=== PATIENT | male | born 1970 | race Caucasian/White ===

== ENCOUNTER 2016-10-17 15:41 | Inpatient (IN) | payer OTHER ==
[2016-10-17 16:25] VITALS: BMI 27.8
--- NOTE | 2016-10-17 16:53 | HP ---
Admission ROS [facility] Chief Complaint: i want to go to rehab Allergies/Adverse Reactions: Allergies Allergy/AdvReac Type Severity Reaction Status Date / Time No Known Allergies Allergy Verified 10/17/16 16:34 History of Present Illness: 46 years old male return from ER treated with abscess left upper inner arm, Exam Limitations: No Limitations - Ebola screening Have you traveled outside of the country in the last 21 days: No Have you had contact with anyone from an Ebola affected area: No Have you been sick,other than usual withdrawal symptoms: No Do you have a fever: No - Review of Systems Constitutional: Weight Stable EENT: reports: No Symptoms Reported Respiratory: reports: No Symptoms reported Cardiac: reports: No Symptoms Reported GI: reports: No Symptoms Reported : reports: No Symptoms Reported Musculoskeletal: reports: Muscle Pain (left upper inner arm) Integumentary: reports: Change in Color, Erythema (abscess left upper arm) Neuro: reports: Seizure (last episode n2016 summer, withdrawal related) Endocrine: reports: No Symptoms Reported Hematology: reports: No Symptoms Reported Psychiatric: reports: Judgement Intact, Orientated x3, Anxious Other Systems: Reviewed and Negative Patient History - Patient Medical History Hx Anemia: No Hx Asthma: No Hx Chronic Obstructive Pulmonary Disease (COPD): No Hx Cancer: No Hx Cardiac Disorders: No Hx Hypertension: No Hx Hypercholesterolemia: Yes (by history) Hx Pacemaker: No HX Cerebrovascular Accident: No Hx Seizures: Yes (drug related-last episode was in 02/2016) Hx Dementia: No Hx Diabetes: No Hx Gastrointestinal Disorders: No Hx Liver Disease: No Hx Genitourinary Disorders: No Hx Sexually Transmitted Disorders: No Hx Renal Disease (ESRD): No Hx Thyroid Disease: No Hx Human Immunodeficiency Virus (HIV): No Hx Hepatitis C: Yes (treated) Hx Depression: No Hx Suicide Attempt: Yes (pill overdose at age 30) Hx Bipolar Disorder: Yes Hx Schizophrenia: No - Patient Surgical History Past Surgical History: Yes Hx Neurologic Surgery: No Hx Cataract Extraction: No Hx Cardiac Surgery: No Hx Lung Surgery: No Hx Breast Surgery: No Hx Breast Biopsy: No Hx Abdominal Surgery: No Hx Appendectomy: No Hx Cholecystectomy: No Hx Genitourinary Surgery: No Hx Orthopedic Surgery: Yes (left forearm ) Other Surgical History: cellulitis from needle use, left arm Anesthesia Reaction: No - PPD History Previous Implant?: Yes Documented Results: Negative w/proof Implanted On Prior [facility] Admission?: Yes Date: 06/27/16 Results: 0 mm PPD to be Administered?: No - Smoking Cessation Smoking history: Current every day smoker Have you smoked in the past 12 months: Yes Aproximately how many cigarettes per day: 10 Cigars Per Day: 0 Hx Chewing Tobacco Use: No Initiated information on smoking cessation: Yes 'Breaking Loose' booklet given: 10/17/16 - Substance & Tx. History Hx Alcohol Use: No Hx Substance Use: Yes Substance Use Type: Cocaine, Tranquilizers Hx Substance Use Treatment: Yes - Substances Abused Alprazolam (Xanax) Route: Oral Frequency: Daily Amount used: 8 mg Age of first use: 20 Date of Last Use: 10/12/16 Family Disease History - Family Disease History Family Disease History: Diabetes: Brother (asthma ), Respiratory: Brother, Other : Father (no contact) Admission Physical Exam S - Vital Signs Vital Signs: Vital Signs - 24 hr 10/17/16 16:22 Temperature 97 F L Pulse Rate 76 Respiratory 20 Rate Blood Pressure 144/88 - Physical General Appearance: Yes: No Apparent Distress, Nourished, Appropriately Dressed HEENTM: Yes: Hearing grossly Normal, Normal ENT Inspection, Normocephalic, Normal Voice Respiratory: Yes: Chest Non-Tender, Lungs Clear, Normal Breath Sounds, No Respiratory Distress, No Accessory Muscle Use Neck: Yes: Supple, Trachea in good position Breast: Yes: Breasts Symetrical Cardiology: Yes: Regular Rhythm, Regular Rate, S1, S2 Abdominal: Yes: Non Tender, Soft Genitourinary: Yes: Within Normal Limits Back: Yes: Normal Inspection Musculoskeletal: Yes: full range of Motion, Gait Steady, Muscle Pain (left upper inner arm) Extremities: Yes: Normal Range of Motion, Non-Tender, Swelling (left upper inner arm abscess I&D) Neurological: Yes: Fully Oriented, Alert, Motor Strength 5/5, Normal Mood/Affect , Normal Response Integumentary: Yes: Warm, Erythema (left upper arm) Lymphatic: Yes: Within Normal Limits - Diagnostic (1) Abscess of left forearm Current Visit: Yes Status: Acute Comment: I&D on 10/13/16 at [facility], return 10/17/16, continue augmentin + clindamycin + wound care daily (2) Nicotine dependence Current Visit: Yes Status: Acute Qualifiers: Nicotine product type: cigarettes Substance use status: in withdrawal Qualified Code(s): F17.213 - Nicotine dependence, cigarettes, with withdrawal (3) Sedative, hypnotic or anxiolytic dependence with withdrawal, uncomplicated Current Visit: Yes Status: Acute (4) Hep C w/o coma, chronic Current Visit: Yes Status: Resolved Comment: treated (5) Methadone maintenance therapy patient Current Visit: Yes Status: Acute Comment: 190 mg last dose 10/17/16 at [facility], verification pending (6) Neuropathy Current Visit: Yes Status: Acute Comment: left fore arm s/p surgical repaired open fx (7) Bipolar II disorder Current Visit: Yes Status: Suspected Cleared for Admission [facility] - Detox or Rehab [facility] Level of Care: Observation Bed Detox Regimen/Protocol: Not Applicable Claeared for Rehab Admission: Yes [facility] Breath Alcohol Content Breath Alcohol Content: 0 Urine Drug Screen - Results Drug Screen Negative: No Urine Drug Screen Results: LEYDI-Cocaine, BZO-Benzodiazepines, MTD-Methadone
[2016-10-17] MEDS ORDERED: guaiFENesin/D-METHORPHAN HB 10 ML UNIT-DOSE CUPS PO PRN (16:57)
[2016-10-17] MEDS ORDERED: MAGNESIUM CITRATE 300 ML BOTTLE PO PRN (16:57)
[2016-10-17] MEDS ORDERED: MAGNESIUM HYDROX 2400MG/30ML ORAL SUSPENSION 30 ML CUP PO PRN (16:57)
[2016-10-17] MEDS ORDERED: NICOTINE 14 MG/24 HOURS TOPICAL PATCH TD PRN (16:57)
[2016-10-17] MEDS ORDERED: MENTHOL/PHENOL 1 EACH UD MM PRN (16:57)
[2016-10-17] MEDS ORDERED: diphenhydrAMINE HCL 50 MG CAPSULE PO PRN (16:57)
[2016-10-17] MEDS ORDERED: ACETAMINOPHEN 325 MG TABLET (FP) PO PRN (16:57)
[2016-10-17] MEDS ORDERED: P-EPHED 60MG/TRIPROLIDI 2.5MG TABLET PO PRN (16:57)
[2016-10-17] MEDS ORDERED: MAG HYDROX/AL HYDROX/SIMETH 30 ML UNIT-DOSE CUP PO PRN (16:57)
[2016-10-17] MEDS ORDERED: LOPERAMIDE HCL 2 MG CAPSULE PO PRN (16:57)
[2016-10-17] MEDS: AMOX TR/POT CLAV 875MG/125MG TABLETS (FP) PO SCH (18:18)
[2016-10-17] MEDS: CLINDAMYCIN HCL 150 MG CAPSULE (FP) PO SCH (18:18)
[2016-10-17] MEDS: NICOTINE POLACRILEX 2 MG GUM BC PRN ×2 (18:19→21:31)
[2016-10-17] MEDS: THIAMINE HCL 100 MG TABLET (FP) PO SCH (21:29)
[2016-10-17] MEDS: GABAPENTIN 300 MG CAPSULE (FP) PO SCH (21:31)
[2016-10-18 00:38] LABS: URINE APPEARANCE CLEAR; URINE BILIRUBIN NEGATIVE (NEGATIVE); URINE BLOOD NEGATIVE (NEGATIVE); URINE COLOR STRAW; URINE GLUCOSE (UA) NEGATIVE (NEGATIVE); URINE KETONE NEGATIVE (NEGATIVE); URINE LEUK ESTERASE NEGATIVE (NEGATIVE); URINE NITRITE NEGATIVE (NEGATIVE); URINE PROTEIN NEGATIVE (NEGATIVE); URINE UROBILINOGEN NEGATIVE E.U./dl (0.2-1.0)
[2016-10-18] MEDS: CLINDAMYCIN HCL 150 MG CAPSULE (FP) PO SCH ×5 (01:12→23:52)
[2016-10-18] MEDS ORDERED: METHADONE HCL 10 MG TABLET ONE (04:49)
[2016-10-18] MEDS ORDERED: METHADONE HCL 40 MG DISPERSABLE TABLET ONE (04:50)
[2016-10-18] MEDS ORDERED: METHADONE HCL 10 MG TABLET PO SCH (06:00)
[2016-10-18] MEDS: GABAPENTIN 300 MG CAPSULE (FP) PO SCH ×3 (06:09→21:34)
[2016-10-18] MEDS: METHADONE 160 MG, METHADONE 30 MG PO SCH (06:09)
[2016-10-18] MEDS: NICOTINE POLACRILEX 2 MG GUM BC PRN ×3 (06:12→17:56)
[2016-10-18] MEDS: AMOX TR/POT CLAV 875MG/125MG TABLETS (FP) PO SCH ×2 (07:02→17:55)
[2016-10-18 10:17] LABS: MCHC 33.6 g/dl (32.0-35.9); MEAN CELL VOLUME 83.2 fl (80-96); PLATELET COUNT 192 K/MM3 (134-434); RDW 15.1 % (11.9-15.9)
[2016-10-18] MEDS: PRENATAL VITAMINS W/ FOLIC ACID TABLET (FP) PO SCH (10:33)
[2016-10-18 10:36] LABS: ALBUMIN 3.9 g/dl (3.4-5.0); ANION GAP 7 (8-16); CALCIUM 9.4 mg/dL (8.5-10.1); CO2 34 mmol/L (21-32); GLUCOSE,RANDOM 90 mg/dL (74-106); SGOT/AST 16 U/L (15-37); SGPT/ALT 20 U/L (12-78)
[2016-10-18 10:38] LABS: ALK PHOS 57 U/L (45-117); BILIRUBIN,TOTAL 0.2 mg/dL (0.2-1.0); CREATININE 1.1 mg/dL (0.7-1.3); TOT PROT 7.1 g/dl (6.4-8.2)
--- NOTE | 2016-10-18 15:01 | EKG ---
Test Reason : Blood Pressure : / mmHG Vent. Rate : 062 BPM Atrial Rate : 062 BPM P-R Int : 134 ms QRS Dur : 086 ms QT Int : 452 ms P-R-T Axes : 032 065 037 degrees QTc Int : 458 ms NORMAL SINUS RHYTHM EARLY REPOLARIZATION WHEN COMPARED WITH ECG OF 13-OCT-2016 14:00, NO SIGNIFICANT CHANGE WAS FOUND Confirmed by LAINA MOJICA MD ([id number]) on 10/18/2016 3:01:01 PM Referred By: Julia Red Confirmed By:LAINA MOJICA MD
[2016-10-18] MEDS: THIAMINE HCL 100 MG TABLET (FP) PO SCH (21:34)
[2016-10-18] MEDS: QUEtiapine FUMARATE 25 MG TABLET (FP) PO SCH (21:34)
[2016-10-19] MEDS ORDERED: METHADONE HCL 10 MG TABLET ONE (04:17)
[2016-10-19] MEDS ORDERED: METHADONE HCL 40 MG DISPERSABLE TABLET ONE (04:18)
[2016-10-19] MEDS: METHADONE 160 MG, METHADONE 30 MG PO SCH (06:06)
[2016-10-19] MEDS: CLINDAMYCIN HCL 150 MG CAPSULE (FP) PO SCH ×4 (06:06→23:49)
[2016-10-19] MEDS: GABAPENTIN 300 MG CAPSULE (FP) PO SCH ×3 (06:06→21:46)
[2016-10-19] MEDS: NICOTINE POLACRILEX 2 MG GUM BC PRN ×4 (06:09→21:47)
[2016-10-19] MEDS: AMOX TR/POT CLAV 875MG/125MG TABLETS (FP) PO SCH ×2 (07:07→17:41)
[2016-10-19] MEDS: PRENATAL VITAMINS W/ FOLIC ACID TABLET (FP) PO SCH (10:28)
[2016-10-19] MEDS: THIAMINE HCL 100 MG TABLET (FP) PO SCH (21:46)
[2016-10-19] MEDS: QUEtiapine FUMARATE 25 MG TABLET (FP) PO SCH (21:47)
[2016-10-20] MEDS ORDERED: METHADONE HCL 10 MG TABLET ONE (03:16)
[2016-10-20] MEDS ORDERED: METHADONE HCL 40 MG DISPERSABLE TABLET ONE (03:17)
[2016-10-20] MEDS: CLINDAMYCIN HCL 150 MG CAPSULE (FP) PO SCH ×4 (06:05→23:35)
[2016-10-20] MEDS: GABAPENTIN 300 MG CAPSULE (FP) PO SCH ×3 (06:05→21:51)
[2016-10-20] MEDS: METHADONE 160 MG, METHADONE 30 MG PO SCH (06:06)
[2016-10-20] MEDS: NICOTINE POLACRILEX 2 MG GUM BC PRN ×4 (06:09→21:52)
[2016-10-20] MEDS: AMOX TR/POT CLAV 875MG/125MG TABLETS (FP) PO SCH ×2 (07:13→17:35)
[2016-10-20] MEDS: PRENATAL VITAMINS W/ FOLIC ACID TABLET (FP) PO SCH (09:38)
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
[2016-10-20] MEDS: hydrOXYzine PAMOATE 50 MG CAPSULE (FP) PO PRN (17:36)
[2016-10-20] MEDS: THIAMINE HCL 100 MG TABLET (FP) PO SCH (21:51)
[2016-10-20] MEDS: QUEtiapine FUMARATE 50 MG TABLET PO SCH (21:51)
[2016-10-21] MEDS ORDERED: METHADONE HCL 10 MG TABLET ONE (03:16)
[2016-10-21] MEDS ORDERED: METHADONE HCL 40 MG DISPERSABLE TABLET ONE (03:17)
[2016-10-21] MEDS: GABAPENTIN 300 MG CAPSULE (FP) PO SCH ×3 (06:13→21:50)
[2016-10-21] MEDS: CLINDAMYCIN HCL 150 MG CAPSULE (FP) PO SCH ×3 (06:13→17:23)
[2016-10-21] MEDS: METHADONE 160 MG, METHADONE 30 MG PO SCH (06:14)
[2016-10-21] MEDS: NICOTINE POLACRILEX 2 MG GUM BC PRN ×3 (06:16→13:43)
[2016-10-21] MEDS: AMOX TR/POT CLAV 875MG/125MG TABLETS (FP) PO SCH ×2 (07:28→17:23)
[2016-10-21] MEDS: PRENATAL VITAMINS W/ FOLIC ACID TABLET (FP) PO SCH (09:37)
[2016-10-21] MEDS: hydrOXYzine PAMOATE 50 MG CAPSULE (FP) PO PRN (09:38)
[2016-10-21] MEDS: IBUPROFEN 400 MG TABLET (FP) PO PRN (13:44)
--- NOTE | 2016-10-21 17:33 | PN ---
[facility] Progress Note Note: LEFT ELBOW SMALL AREA SIZE 0.3 CM,NO DRAINAGE,SHALLOW AT SIZE OF PREVIOUS I AND D, NO DRAINAGE,NO FLUCTUATION, D/C PACKING,BACITRACIN OINTMENT BID WITH DRESSING, CLOSE MONITORING
[2016-10-21] MEDS: BACITRACIN 0.9 GM PACKET TP SCH (21:50)
[2016-10-21] MEDS: THIAMINE HCL 100 MG TABLET (FP) PO SCH (21:50)
[2016-10-21] MEDS: QUEtiapine FUMARATE 50 MG TABLET PO SCH (21:50)
[2016-10-22] MEDS: CLINDAMYCIN HCL 150 MG CAPSULE (FP) PO SCH ×5 (00:07→23:31)
[2016-10-22] MEDS ORDERED: METHADONE HCL 10 MG TABLET ONE (04:52)
[2016-10-22] MEDS ORDERED: METHADONE HCL 40 MG DISPERSABLE TABLET ONE (04:53)
[2016-10-22] MEDS: GABAPENTIN 300 MG CAPSULE (FP) PO SCH ×3 (06:11→21:29)
[2016-10-22] MEDS: METHADONE 160 MG, METHADONE 30 MG PO SCH (06:12)
[2016-10-22] MEDS: NICOTINE POLACRILEX 2 MG GUM BC PRN ×5 (06:15→21:30)
[2016-10-22] MEDS: PRENATAL VITAMINS W/ FOLIC ACID TABLET (FP) PO SCH (09:50)
[2016-10-22] MEDS: BACITRACIN 0.9 GM PACKET TP SCH ×2 (09:50→21:29)
[2016-10-22] MEDS: AMOX TR/POT CLAV 875MG/125MG TABLETS (FP) PO SCH ×2 (09:52→17:22)
[2016-10-22] MEDS: hydrOXYzine PAMOATE 50 MG CAPSULE (FP) PO PRN ×2 (12:57→17:23)
[2016-10-22] MEDS: QUEtiapine FUMARATE 50 MG TABLET PO SCH (21:29)
[2016-10-22] MEDS: THIAMINE HCL 100 MG TABLET (FP) PO SCH (21:29)
[2016-10-23] MEDS ORDERED: METHADONE HCL 40 MG DISPERSABLE TABLET ONE (05:10)
[2016-10-23] MEDS ORDERED: METHADONE HCL 10 MG TABLET ONE (05:10)
[2016-10-23] MEDS: GABAPENTIN 300 MG CAPSULE (FP) PO SCH ×3 (06:16→21:52)
[2016-10-23] MEDS: METHADONE 160 MG, METHADONE 30 MG PO SCH (06:16)
[2016-10-23] MEDS: NICOTINE POLACRILEX 2 MG GUM BC PRN ×3 (06:18→14:05)
[2016-10-23] MEDS: PRENATAL VITAMINS W/ FOLIC ACID TABLET (FP) PO SCH (10:06)
[2016-10-23] MEDS: BACITRACIN 0.9 GM PACKET TP SCH ×2 (10:07→22:22)
[2016-10-23] MEDS: IBUPROFEN 400 MG TABLET (FP) PO PRN (10:08)
[2016-10-23] MEDS: hydrOXYzine PAMOATE 50 MG CAPSULE (FP) PO PRN ×2 (14:06→21:55)
[2016-10-23] MEDS: THIAMINE HCL 100 MG TABLET (FP) PO SCH (21:52)
[2016-10-23] MEDS: QUEtiapine FUMARATE 50 MG TABLET PO SCH (21:52)
[2016-10-24] MEDS ORDERED: METHADONE HCL 10 MG TABLET ONE (03:16)
[2016-10-24] MEDS ORDERED: METHADONE HCL 40 MG DISPERSABLE TABLET ONE (03:17)
[2016-10-24] MEDS: METHADONE 160 MG, METHADONE 30 MG PO SCH (06:07)
[2016-10-24] MEDS: GABAPENTIN 300 MG CAPSULE (FP) PO SCH ×3 (06:07→21:46)
[2016-10-24] MEDS: NICOTINE POLACRILEX 2 MG GUM BC PRN ×4 (06:09→21:48)
[2016-10-24] MEDS: PRENATAL VITAMINS W/ FOLIC ACID TABLET (FP) PO SCH (10:14)
[2016-10-24] MEDS: BACITRACIN 0.9 GM PACKET TP SCH ×2 (10:14→21:46)
[2016-10-24] MEDS: hydrOXYzine PAMOATE 50 MG CAPSULE (FP) PO PRN ×2 (10:16→14:16)
[2016-10-24] MEDS: CLINDAMYCIN HCL 150 MG CAPSULE (FP) PO SCH ×3 (14:04→14:05)
--- NOTE | 2016-10-24 15:39 | PN ---
Psychiatric Progress Note Vital Signs: Vital Signs Period Temp Pulse Resp BP Sys/Murry Pulse Ox Last 24 Hr 98.0 F 86 18-18 118/89 Date of Session: 10/24/16 Chief Complaint:: anxious " HPI: Patient is addressing opioid, sedative and cocaine dependence comorbid Bipolar II disorder and PTSD. ROS: WNL Current Medications: Active Medications Generic Name Dose Route Start Last Admin Trade Name Freq PRN Reason Stop Dose Admin Acetaminophen 650 mg 10/17/16 16:57 10/19/16 11:14 Tylenol - PO 650 mg Q4H PRN Administration PAIN Al Hydroxide/Mg Hydroxide 30 ml 10/17/16 16:57 Mylanta Oral Suspension - PO Q6H PRN DYSPEPSIA Bacitracin 0.9 gm 10/21/16 22:00 10/24/16 10:14 Bacitracin - TP 0.9 gm BID PAMELA Administration Diphenhydramine HCl 50 mg 10/17/16 16:57 10/17/16 21:30 Benadryl - PO 50 mg HSMR1 PRN Administration INSOMNIA Eucalyptus/Menthol/Phenol/Sorbitol 1 each 10/17/16 16:57 Cepastat Lozenge - MM Q4H PRN SORE THROAT Gabapentin 300 mg 10/17/16 22:00 10/24/16 14:16 Neurontin - PO 300 mg TID PAMELA Administration Guaifenesin 10 ml 10/17/16 16:57 Robitussin Dm - PO Q6H PRN COUGH Hydroxyzine Pamoate 50 mg 10/20/16 14:27 10/24/16 14:16 Vistaril - PO 50 mg Q4H PRN Administration ANXIETY Ibuprofen 400 mg 10/17/16 16:57 10/23/16 10:08 Motrin - PO 400 mg Q6H PRN Administration SEVERE PAIN Loperamide HCl 4 mg 10/17/16 16:57 Imodium - PO Q6H PRN DIARRHEA Magnesium Citrate 300 ml 10/17/16 16:57 Citroma - PO Q48H PRN CONSTIPATION Magnesium Hydroxide 30 ml 10/17/16 16:57 Milk Of Magnesia - PO DAILY PRN CONSTIPATION Methadone HCl 160 mg/ 190 mg 10/18/16 06:00 10/24/16 06:07 Methadone HCl 30 mg PO 190 mg DAILY@0600 PAMELA Administration Nicotine 14 mg 10/17/16 16:57 Nicoderm Patch - TD DAILY PRN WITHDRAWAL(CONT SUBST) Nicotine Polacrilex 2 mg 10/17/16 16:57 10/24/16 14:16 Nicorette Gum - BC 2 mg Q2H PRN Administration NICOTINE REPLACEMENT RX Multivit/Folic Acid/Iron 1 tab 10/18/16 10:00 10/24/16 10:14 Vitamins ([facility]) - PO 1 tab DAILY PAMELA Administration Pseudoephedrine/Triprolidine 1 combo 10/17/16 16:57 Actifed - PO TID PRN NASAL CONGESTION Thiamine HCl 100 mg 10/17/16 22:00 10/23/16 21:52 Vitamin B1 - PO 100 mg HS PAMELA Administration Medication(s) Change(s): increase Seroquel 150 mg po hs, start Buspar. Current Side Effect: No Lab tests ordered: No Lab tests reviewed: Yes Provider note:: Patient reports he is very anxious, states he gets more anxious when takes vistaril, unable to sleep patient reports that was on Seroquel 150 mg with a good responce, discusssed indications and properties of Buspar with the patient he agreed to start, adjust the dosage when indicated, will continue to monitor progress.Psychoeducation supports provided. Total face to face time:: 35 Mental Status Exam - Mental Status Exam Alert and Oriented to: Time, Place, Person Cognitive Function: Good Patient Appearance: Well Groomed Mood: Depressed, Sad, Anxious Affect: Appropriate, Mood Congruent Patient Behavior: Appropriate, Cooperative Speech Pattern: Clear, Appropriate Voice Loudness: Normal Thought Process: Intact, Goal Oriented Thought Disorder: Not Present Hallucinations: Denies Suicidal Ideation: Denies Homicidal Ideation: Denies Insight/Judgement: Good Sleep: Poorly, Difficulty falling asleep Appetite: Good Muscle strength/Tone: Normal Gait/Station: Normal Psychiatric Treatment Plan - Problem List (1) Methadone maintenance therapy patient Current Visit: Yes Comment: 190 mg last dose 10/17/16 at [facility], verification pending (2) Neuropathy Current Visit: Yes Comment: left fore arm s/p surgical repaired open fx (3) Nicotine dependence Current Visit: Yes Qualifiers: Nicotine product type: cigarettes Substance use status: in withdrawal Qualified Code(s): F17.213 - Nicotine dependence, cigarettes, with withdrawal (4) Bipolar II disorder Current Visit: Yes (5) Cocaine dependence Current Visit: No (6) Opioid dependence on agonist therapy Current Visit: No (7) Post traumatic stress disorder (PTSD) Current Visit: No Comment: By history. (8) Anxiolytic dependence Current Visit: Yes
[2016-10-24] MEDS: busPIRone HCL 5 MG TABLET PO SCH (21:46)
[2016-10-24] MEDS: QUEtiapine FUMARATE 50 MG TABLET PO SCH (21:46)
[2016-10-24] MEDS: THIAMINE HCL 100 MG TABLET (FP) PO SCH (21:46)
[2016-10-25] MEDS ORDERED: METHADONE HCL 10 MG TABLET ONE (03:21)
[2016-10-25] MEDS ORDERED: METHADONE HCL 40 MG DISPERSABLE TABLET ONE (03:22)
[2016-10-25] MEDS: GABAPENTIN 300 MG CAPSULE (FP) PO SCH ×3 (06:38→21:46)
[2016-10-25] MEDS: METHADONE 160 MG, METHADONE 30 MG PO SCH (06:38)
[2016-10-25] MEDS: busPIRone HCL 5 MG TABLET PO SCH ×3 (06:38→21:46)
[2016-10-25] MEDS: PRENATAL VITAMINS W/ FOLIC ACID TABLET (FP) PO SCH (10:35)
[2016-10-25] MEDS: BACITRACIN 0.9 GM PACKET TP SCH ×2 (10:35→21:46)
[2016-10-25] MEDS: NICOTINE POLACRILEX 2 MG GUM BC PRN ×2 (10:35→21:47)
[2016-10-25] MEDS: QUEtiapine FUMARATE 50 MG TABLET PO SCH (21:46)
[2016-10-25] MEDS: THIAMINE HCL 100 MG TABLET (FP) PO SCH (21:46)
[2016-10-26] MEDS ORDERED: METHADONE HCL 10 MG TABLET ONE (03:19)
[2016-10-26] MEDS ORDERED: METHADONE HCL 40 MG DISPERSABLE TABLET ONE (03:19)
[2016-10-26] MEDS: busPIRone HCL 5 MG TABLET PO SCH ×3 (06:36→21:36)
[2016-10-26] MEDS: METHADONE 160 MG, METHADONE 30 MG PO SCH (06:36)
[2016-10-26] MEDS: GABAPENTIN 300 MG CAPSULE (FP) PO SCH ×3 (06:36→21:36)
[2016-10-26] MEDS: BACITRACIN 0.9 GM PACKET TP SCH ×2 (10:23→21:36)
[2016-10-26] MEDS: PRENATAL VITAMINS W/ FOLIC ACID TABLET (FP) PO SCH (10:23)
[2016-10-26] MEDS: QUEtiapine FUMARATE 50 MG TABLET PO SCH (21:36)
[2016-10-26] MEDS: THIAMINE HCL 100 MG TABLET (FP) PO SCH (21:37)
[2016-10-26] MEDS: NICOTINE POLACRILEX 2 MG GUM BC PRN (21:37)
[2016-10-27] MEDS ORDERED: METHADONE HCL 10 MG TABLET ONE (03:13)
[2016-10-27] MEDS ORDERED: METHADONE HCL 40 MG DISPERSABLE TABLET ONE (03:13)
[2016-10-27] MEDS: busPIRone HCL 5 MG TABLET PO SCH ×2 (06:06→14:21)
[2016-10-27] MEDS: GABAPENTIN 300 MG CAPSULE (FP) PO SCH ×3 (06:06→22:18)
[2016-10-27] MEDS: METHADONE 160 MG, METHADONE 30 MG PO SCH (06:06)
[2016-10-27] MEDS: NICOTINE POLACRILEX 2 MG GUM BC PRN ×4 (06:08→22:20)
[2016-10-27] MEDS: hydrOXYzine PAMOATE 50 MG CAPSULE (FP) PO PRN (10:01)
[2016-10-27] MEDS: BACITRACIN 0.9 GM PACKET TP SCH ×2 (10:01→22:18)
[2016-10-27] MEDS: PRENATAL VITAMINS W/ FOLIC ACID TABLET (FP) PO SCH (10:01)
--- NOTE | 2016-10-27 14:16 | PN ---
[facility] Progress Note Note: patient reports he feels a little better but still anxious, will increase Buspar 10 mg tid, continue to monitor progress.
[2016-10-27] MEDS ORDERED: busPIRone HCL 5 MG TABLET PO SCH (14:22)
[2016-10-27] MEDS: busPIRone HCL 10 MG TABLET (FP) PO SCH ×2 (14:26→22:18)
[2016-10-27] MEDS: THIAMINE HCL 100 MG TABLET (FP) PO SCH (22:18)
[2016-10-27] MEDS: QUEtiapine FUMARATE 50 MG TABLET PO SCH (22:18)
[2016-10-28] MEDS ORDERED: METHADONE HCL 40 MG DISPERSABLE TABLET ONE (03:45)
[2016-10-28] MEDS ORDERED: METHADONE HCL 10 MG TABLET ONE (03:45)
[2016-10-28] MEDS: busPIRone HCL 10 MG TABLET (FP) PO SCH ×3 (06:09→21:37)
[2016-10-28] MEDS: GABAPENTIN 300 MG CAPSULE (FP) PO SCH ×3 (06:09→21:37)
[2016-10-28] MEDS: METHADONE 160 MG, METHADONE 30 MG PO SCH (06:09)
[2016-10-28] MEDS: PRENATAL VITAMINS W/ FOLIC ACID TABLET (FP) PO SCH (10:07)
[2016-10-28] MEDS: NICOTINE POLACRILEX 2 MG GUM BC PRN ×2 (10:07→21:39)
[2016-10-28] MEDS: BACITRACIN 0.9 GM PACKET TP SCH ×2 (10:07→21:38)
[2016-10-28] MEDS: hydrOXYzine PAMOATE 50 MG CAPSULE (FP) PO PRN (10:07)
[2016-10-28] MEDS: THIAMINE HCL 100 MG TABLET (FP) PO SCH (21:37)
[2016-10-28] MEDS: QUEtiapine FUMARATE 50 MG TABLET PO SCH (21:37)
[2016-10-29] MEDS ORDERED: METHADONE HCL 10 MG TABLET ONE (03:22)
[2016-10-29] MEDS ORDERED: METHADONE HCL 40 MG DISPERSABLE TABLET ONE (03:23)
[2016-10-29] MEDS: busPIRone HCL 10 MG TABLET (FP) PO SCH (06:13)
[2016-10-29] MEDS: METHADONE 160 MG, METHADONE 30 MG PO SCH (06:13)
[2016-10-29] MEDS: GABAPENTIN 300 MG CAPSULE (FP) PO SCH (06:13)
[2016-10-29 07:10] VITALS: BP 117/76; PULSE 91; TEMP 98.4
[2016-10-29] MEDS: hydrOXYzine PAMOATE 50 MG CAPSULE (FP) PO PRN (09:55)
[2016-10-29] MEDS: PRENATAL VITAMINS W/ FOLIC ACID TABLET (FP) PO SCH (09:55)
[2016-10-29] MEDS: BACITRACIN 0.9 GM PACKET TP SCH (09:56)
--- NOTE | 2016-10-29 20:14 | PN ---
[facility] Progress Note Note: patient was discharged today in stable condition with referral to the [facility] opd, scripts for 30 days provided.
== END 2016-10-29 10:40 | disposition home or self-care (01) | DRG 895 ==
LOC: YASAS 15:41 → Y5N 15:54
PROVIDERS: ADMIT Psychiatry & Neurology Psychiatry; ATTEND Psychiatry & Neurology Psychiatry
PROC: HZ42ZZZ Group Counseling for Substance Abuse Treatment, Cognitive-Behavioral (ICD-10-PCS; principal; 2016-10-17)
DX: F13.20 Sedative, hypnotic or anxiolytic dependence, uncomplicated (principal); F11.20 Opioid dependence, uncomplicated; F14.20 Cocaine dependence, uncomplicated; F31.81 Bipolar II disorder; L02.414 Cutaneous abscess of left upper limb; F17.210 Nicotine dependence, cigarettes, uncomplicated; F43.10 Post-traumatic stress disorder, unspecified; G62.9 Polyneuropathy, unspecified; Z86.69 Personal history of other diseases of the nervous system and sense organs; Z91.5 Personal history of self-harm
CPT/HCPCS: 36415; 80053; 81003; 85027; 86593; 93005; 93010

== ENCOUNTER 2017-01-26 11:11 | Inpatient (IN) | payer OTHER ==
[2017-01-26 12:42] VITALS: BMI 26.4
--- NOTE | 2017-01-26 16:26 | HP ---
CIWA Score - CIWA Score Nausea/Vomitin-Mild Nausea/No Vomiting Muscle Tremors: 4-Moderate,w/Arms Extend Anxiety: 4-Mod. Anxious/Guarded Agitation: 4-Moderately Restless Paroxysmal Sweats: 1-Minimal Palms Moist Orientation: 0-Oriented Tacttile Disturbances: 0-None Auditory Disturbances: 0-None Visual Disturbances: 0-None Headache: 1-Very Mild CIWA-Ar Total Score: 15 Admission ROS [facility] - HPI Chief Complaint: WITHDRAWAL SX Allergies/Adverse Reactions: Allergies Allergy/AdvReac Type Severity Reaction Status Date / Time No Known Allergies Allergy Verified 01/26/17 16:32 History of Present Illness: 46 YEARS OLD MALE WITH LONG HISTORY OF KLONOPIN NICOTINE DEPENDENCE HAS HEPATITIS C TREATED, METHADONE 190 MG PO DAILY, BIPOLAR II DISORDER IS ADMITTED TO DETOX Exam Limitations: No Limitations - Ebola screening Have you traveled outside of the country in the last 21 days: No Have you had contact with anyone from an Ebola affected area: No Have you been sick,other than usual withdrawal symptoms: No Do you have a fever: No - Review of Systems Constitutional: Chills, Changes in sleep, Weight Stable EENT: reports: No Symptoms Reported Respiratory: reports: No Symptoms reported Cardiac: reports: No Symptoms Reported GI: reports: Nausea, Poor Fluid Intake, Abdominal cramping : reports: No Symptoms Reported Musculoskeletal: reports: No Symptoms Reported Integumentary: reports: Change in Color, Rash (ARMS) Neuro: reports: Seizure (2016 BENZO WITHDRAWAL INDUCED), Tremors Endocrine: reports: No Symptoms Reported Hematology: reports: No Symptoms Reported Psychiatric: reports: Judgement Intact, Orientated x3 Other Systems: Reviewed and Negative Patient History - Patient Medical History Hx Anemia: No Hx Asthma: No Hx Chronic Obstructive Pulmonary Disease (COPD): No Hx Cancer: No Hx Cardiac Disorders: No Hx Hypertension: No Hx Hypercholesterolemia: Yes (by history) Hx Pacemaker: No HX Cerebrovascular Accident: No Hx Seizures: Yes (last one 2016 drug overdose) Hx Dementia: No Hx Diabetes: No Hx Gastrointestinal Disorders: No Hx Liver Disease: No Hx Genitourinary Disorders: No Hx Sexually Transmitted Disorders: No Hx Renal Disease (ESRD): No Hx Thyroid Disease: No Hx Human Immunodeficiency Virus (HIV): No Hx Hepatitis C: Yes (treated) Hx Depression: No Hx Suicide Attempt: Yes (15 YEARS AGO PILLS OVERDOSE) Hx Bipolar Disorder: Yes Hx Schizophrenia: No - Patient Surgical History Past Surgical History: Yes Hx Neurologic Surgery: No Hx Cataract Extraction: No Hx Cardiac Surgery: No Hx Lung Surgery: No Hx Breast Surgery: No Hx Breast Biopsy: No Hx Abdominal Surgery: No Hx Appendectomy: No Hx Cholecystectomy: No Hx Genitourinary Surgery: No Hx Orthopedic Surgery: Yes (left forearm 2011) Other Surgical History: cellulitis from needle use, left arm Anesthesia Reaction: No - PPD History Previous Implant?: Yes Documented Results: Negative w/proof Implanted On Prior [facility] Admission?: Yes Date: 06/27/16 Results: 0 mm PPD to be Administered?: No - Smoking Cessation Smoking history: Current every day smoker Have you smoked in the past 12 months: Yes Aproximately how many cigarettes per day: 20 Cigars Per Day: 0 Hx Chewing Tobacco Use: No Initiated information on smoking cessation: Yes 'Breaking Loose' booklet given: 01/26/17 - Substance & Tx. History Hx Alcohol Use: No Hx Substance Use: Yes Substance Use Type: Cocaine, Marijuana, Opiates, Tranquilizers Hx Substance Use Treatment: Yes (10/17-10/29/16 [facility]) Family Disease History - Family Disease History Family Disease History: Diabetes: Brother (asthma ), Respiratory: Brother, Other : Father (no contact) Admission Physical Exam [facility] - Vital Signs Vital Signs: Vital Signs - 24 hr 01/26/17 12:20 Temperature 96 F L Pulse Rate 83 Respiratory 20 Rate Blood Pressure 100/69 - Physical General Appearance: Yes: Nourished, Appropriately Dressed, Mild Distress, Tremorous, Irritable, Sweating, Anxious HEENTM: Yes: Hearing grossly Normal, Normal ENT Inspection, Normocephalic, Normal Voice Respiratory: Yes: Chest Non-Tender, Lungs Clear, Normal Breath Sounds, No Respiratory Distress, No Accessory Muscle Use Neck: Yes: Supple, Trachea in good position Breast: Yes: Breasts Symetrical Cardiology: Yes: Regular Rhythm, Regular Rate, S1, S2 Abdominal: Yes: Non Tender, Soft Genitourinary: Yes: Within Normal Limits Back: Yes: Normal Inspection Musculoskeletal: Yes: full range of Motion, Gait Steady Extremities: Yes: Normal Range of Motion, Non-Tender, Tremors, Erythema (HANDS + ARMS RASHES) Neurological: Yes: Fully Oriented, Alert, Motor Strength 5/5, Normal Mood/Affect , Normal Response Integumentary: Yes: Warm Lymphatic: Yes: Within Normal Limits - Diagnostic (1) Methadone maintenance therapy patient Current Visit: Yes Status: Chronic Comment: 190 mg verification pending (2) Nicotine dependence Current Visit: Yes Status: Acute Qualifiers: Nicotine product type: cigarettes Substance use status: in withdrawal Qualified Code(s): F17.213 - Nicotine dependence, cigarettes, with withdrawal (3) Bipolar II disorder Current Visit: Yes Status: Suspected (4) Sedative, hypnotic or anxiolytic dependence with withdrawal, uncomplicated Current Visit: Yes Status: Acute (5) Cocaine dependence, uncomplicated Current Visit: Yes Status: Chronic (6) Cannabis dependence, uncomplicated Current Visit: Yes Status: Chronic (7) Hypercholesteremia Current Visit: Yes Status: Chronic Cleared for Admission [facility] - Detox or Rehab [facility] Level of Care: Medically Managed Detox Regimen/Protocol: Valium S Breath Alcohol Content Breath Alcohol Content: 0 Urine Drug Screen - Control Is Test Valid: Yes - Results Drug Screen Negative: No Urine Drug Screen Results: THC-Marijuana, LEYDI-Cocaine, OPI-Opiates, BZO- Benzodiazepines, MTD-Methadone
[2017-01-26] MEDS ORDERED: P-EPHED 60MG/TRIPROLIDI 2.5MG TABLET PO PRN (16:31)
[2017-01-26] MEDS ORDERED: MAG HYDROX/AL HYDROX/SIMETH 30 ML UNIT-DOSE CUP PO PRN (16:31)
[2017-01-26] MEDS ORDERED: MENTHOL/PHENOL 1 EACH UD MM PRN (16:31)
[2017-01-26] MEDS ORDERED: hydrOXYzine PAMOATE 50 MG CAPSULE (FP) PO PRN (16:31)
[2017-01-26] MEDS ORDERED: guaiFENesin/D-METHORPHAN HB 10 ML UNIT-DOSE CUPS PO PRN (16:31)
[2017-01-26] MEDS ORDERED: MAGNESIUM CITRATE 300 ML BOTTLE PO PRN (16:31)
[2017-01-26] MEDS ORDERED: diphenhydrAMINE HCL 50 MG CAPSULE PO PRN (16:31)
[2017-01-26] MEDS ORDERED: IBUPROFEN 400 MG TABLET (FP) PO PRN (16:31)
[2017-01-26] MEDS ORDERED: LOPERAMIDE HCL 2 MG CAPSULE PO PRN (16:31)
[2017-01-26] MEDS ORDERED: ACETAMINOPHEN 325 MG TABLET (FP) PO PRN (16:31)
[2017-01-26] MEDS ORDERED: MAGNESIUM HYDROX 2400MG/30ML ORAL SUSPENSION 30 ML CUP PO PRN (16:31)
[2017-01-26] MEDS ORDERED: diazePAM 5 MG TABLET PO ONE (18:45)
[2017-01-26] MEDS: THIAMINE HCL 100 MG TABLET (FP) PO SCH (22:26)
[2017-01-26] MEDS: HYDROCORTISONE 2.5% TOPICAL CREAM 30 GM TUBE TP SCH (22:27)
[2017-01-26] MEDS: diazePAM 5 MG TABLET PO SCH (22:27)
[2017-01-26] MEDS: carBAMazepine 200 MG TABLET PO SCH (22:27)
[2017-01-26] MEDS: ATORVASTATIN CA 20 MG TABLET (FP) PO SCH (22:27)
[2017-01-26 23:21] LABS: URINE APPEARANCE SLCLOUDY; URINE BILIRUBIN NEGATIVE (NEGATIVE); URINE BLOOD NEGATIVE (NEGATIVE); URINE COLOR AMBER; URINE GLUCOSE (UA) NEGATIVE (NEGATIVE); URINE KETONE TRACE (NEGATIVE); URINE LEUK ESTERASE TRACE (NEGATIVE); URINE NITRITE NEGATIVE (NEGATIVE); URINE PROTEIN 1+ (NEGATIVE); URINE UROBILINOGEN NEGATIVE E.U./dl (0.2-1.0)
[2017-01-26 23:27] LABS: URINE HYALINE CAST 16 /lpf; URINE MUCUS FEW; URINE RBC 1 /hpf (0-3); URINE WBC 3 /hpf (3-5)
[2017-01-27] MEDS: diazePAM 5 MG TABLET PO SCH ×3 (05:29→22:24)
[2017-01-27] MEDS: NICOTINE POLACRILEX 4 MG GUM BC PRN ×5 (05:31→22:25)
[2017-01-27] MEDS ORDERED: METHADONE HCL 10 MG TABLET PO ONE (08:58)
[2017-01-27] MEDS ORDERED: METHADONE 160 MG, METHADONE 30 MG PO ONE (09:15)
[2017-01-27] MEDS ORDERED: METHADONE HCL 10 MG TABLET ONE (09:34)
[2017-01-27] MEDS ORDERED: METHADONE HCL 40 MG DISPERSABLE TABLET ONE (09:34)
[2017-01-27] MEDS: carBAMazepine 200 MG TABLET PO SCH ×2 (09:36→22:24)
[2017-01-27] MEDS: PRENATAL VITAMINS W/ FOLIC ACID TABLET (FP) PO SCH (09:36)
[2017-01-27] MEDS: DOCUSATE SODIUM 100 MG CAPSULE (FP) PO SCH (09:36)
[2017-01-27 09:44] LABS: MCHC 33.6 g/dl (32.0-35.9); MEAN CELL VOLUME 83.2 fl (80-96); MEAN PLT VOLUME 10.3 fl (7.5-11.1); PLATELET COUNT 188 K/MM3 (134-434); RDW 15.2 % (11.9-15.9); WHITE BLOOD COUNT 10.9 K/mm3 (4.0-10.0)
[2017-01-27 10:28] LABS: ALBUMIN 4.4 g/dl (3.4-5.0); ALK PHOS 65 U/L (45-117); ANION GAP 13 (8-16); BILIRUBIN,TOTAL 0.7 mg/dL (0.2-1.0); CALCIUM 9.3 mg/dL (8.5-10.1); CO2 27 mmol/L (21-32); CREATININE 1.4 mg/dL (0.7-1.3); GLUCOSE,RANDOM 80 mg/dL (74-106); SGOT/AST 17 U/L (15-37); SGPT/ALT 22 U/L (12-78); TOT PROT 8.2 g/dl (6.4-8.2)
[2017-01-27] MEDS: NICOTINE 21 MG/24 HOURS TOPICAL PATCH TD SCH (10:28)
[2017-01-27] MEDS: diazePAM 5 MG TABLET PO PRN ×2 (10:30→17:03)
--- NOTE | 2017-01-27 10:44 | CONSULT ---
[facility] Psychiatric Consult - Data Date of interview: 01/27/17 Admission source: [facility] Identifying data: This is 46 years old male with psychiatric hospitalization history, history of Bipolar mDisorder, intoxicated with: Opioids, mCocaine, Alcohol Nicotine and Cannabis and Xanax Substance Abuse History: Urine Drug Screen Results: THC-Marijuana, LEYDI-Cocaine, OPI-Opiates, BZO-Benzodiazepines, MTD-Methadone. - Smoking Cessation. Smoking history: Current every day smoker. Have you smoked in the past 12 months: Yes. Aproximately how many cigarettes per day: 20. Cigars Per Day: 0. Hx Chewing Tobacco Use: No. Initiated information on smoking cessation: Yes. 'Breaking Loose' booklet given: 01/26/17. - Substance & Tx. History. Hx Alcohol Use: No. Hx Substance Use: Yes. Substance Use Type: Cocaine, Marijuana, Opiates, Tranquilizers. Hx Substance Use Treatment: Yes (10/17-10/29/16 [facility]) Medical History: MMTP 190 md /day, Hyperdholesterolemia, Abscess, Neuropathy, HepC+ Psychiatric History: Patient reports history of Bipolar Disorder with most recent psychiatric admission on more then 10 years ago, reports currently taking prior to admission: Seroquel 150mg po qhs. Gabapentin 300mg po tid. Buspar 10mg po tid. Tegretol 200mg po bid Physical/Sexual Abuse/Trauma History: Denies Additional Comment: Seroquel 150mg po qhs. Gabapentin 300mg po tid. Buspar 10mg po tid. Tegretol 200mg po bid. Urine Drug Screen Results: THC-Marijuana, ELYDI-Cocaine, OPI-Opiates, BZO-Benzodiazepines, MTD-Methadone Mental Status Exam - Mental Status Exam Alert and Oriented to: Person Cognitive Function: Fair Patient Appearance: Unkempt Mood: Sad Affect: Flat Patient Behavior: Sedated Speech Pattern: Delayed Voice Loudness: Mildly Soft/Quiet Thought Process: Goal Oriented Thought Disorder: Being Controlled Hallucinations: Denies Suicidal Ideation: Denies Homicidal Ideation: Denies Insight/Judgement: Fair Sleep: Difficulty falling asleep Appetite: Weight gain Muscle strength/Tone: Mild Hypotonicity Gait/Station: Shuffling Additional Comments: Seroquel 150mg po qhs. Gabapentin 300mg po tid. Buspar 10mg po tid. Tegretol 200mg po bid Psychiatric Findings - Problem List ([place] 1, 2,3) (1) Nicotine dependence Current Visit: Yes Status: Acute Qualifiers: Nicotine product type: cigarettes Substance use status: in withdrawal Qualified Code(s): F17.213 - Nicotine dependence, cigarettes, with withdrawal (2) Sedative, hypnotic or anxiolytic dependence with withdrawal, uncomplicated Current Visit: Yes Status: Acute (3) Cannabis dependence, uncomplicated Current Visit: Yes Status: Chronic (4) Cocaine dependence, uncomplicated Current Visit: Yes Status: Chronic (5) Methadone maintenance therapy patient Current Visit: Yes Status: Chronic Comment: 190 mg verification pending (6) Bipolar II disorder Current Visit: Yes Status: Suspected (7) Benzodiazepine dependence Current Visit: No Status: Acute (8) Cocaine dependence Current Visit: No Status: Acute (9) Drug-induced mood disorder Current Visit: No Status: Acute (10) Marijuana dependence Current Visit: No Status: Acute (11) Substance induced mood disorder Current Visit: No Status: Acute (12) Cocaine abuse Current Visit: No Status: Chronic (13) Post traumatic stress disorder (PTSD) Current Visit: No Status: Chronic Comment: By history. (14) Xanax use disorder, moderate Current Visit: No Status: Chronic - Initial Treatment Plan Initial Treatment Plan: Seroquel 150mg po qhs. Gabapentin 300mg po tid. Buspar 10mg po tid. Tegretol 200mg po bid. Patient refusing to restart Buspar
[2017-01-27] MEDS: HYDROCORTISONE 2.5% TOPICAL CREAM 30 GM TUBE TP SCH ×2 (11:26→22:24)
--- NOTE | 2017-01-27 11:52 | PN ---
[facility] CIWA - CIWA Score Nausea/Vomitin-No Nausea/No Vomiting Muscle Tremors: 4-Moderate,w/Arms Extend Anxiety: 4-Mod. Anxious/Guarded Agitation: 4-Moderately Restless Paroxysmal Sweats: 1-Minimal Palms Moist Orientation: 0-Oriented Tacttile Disturbances: 3-Moderate Itch/Numb/Burn Auditory Disturbances: 0-None Visual Disturbances: 0-None Headache: 0-None Present CIWA-Ar Total Score: 16 S Progress Note (SOAP) Subjective: ANXIETY,TREMORS,MUSCLE ACHES. Objective: 01/27/17 11:51 Vital Signs Temperature 95.9 F L 01/27/17 09:42 Pulse Rate 73 01/27/17 09:42 Respiratory Rate 18 01/27/17 09:42 Blood Pressure 119/82 01/27/17 09:42 O2 Sat by Pulse Oximetry (%) Laboratory Last Values WBC 10.9 K/mm3 (4.0-10.0) H D 01/27/17 06:00 RBC 4.79 M/mm3 (4.00-5.60) 01/27/17 06:00 Hgb 13.4 GM/dL (11.7-16.9) 01/27/17 06:00 Hct 39.9 % (35.4-49) 01/27/17 06:00 MCV 83.2 fl (80-96) 01/27/17 06:00 MCHC 33.6 g/dl (32.0-35.9) 01/27/17 06:00 RDW 15.2 % (11.9-15.9) 01/27/17 06:00 Plt Count 188 K/MM3 (134-434) 01/27/17 06:00 MPV 10.3 fl (7.5-11.1) 01/27/17 06:00 Sodium 136 mmol/L (136-145) 01/27/17 06:00 Potassium 4.0 mmol/L (3.5-5.1) D 01/27/17 06:00 Chloride 96 mmol/L (98-107) L 01/27/17 06:00 Carbon Dioxide 27 mmol/L (21-32) D 01/27/17 06:00 Anion Gap 13 (8-16) 01/27/17 06:00 BUN 13 mg/dL (7-18) D 01/27/17 06:00 Creatinine 1.4 mg/dL (0.7-1.3) H D 01/27/17 06:00 Creat Clearance w eGFR 55.05 (>60) 01/27/17 06:00 Random Glucose 80 mg/dL (74-106) 01/27/17 06:00 Calcium 9.3 mg/dL (8.5-10.1) 01/27/17 06:00 Total Bilirubin 0.7 mg/dL (0.2-1.0) D 01/27/17 06:00 AST 17 U/L (15-37) 01/27/17 06:00 ALT 22 U/L (12-78) 01/27/17 06:00 Alkaline Phosphatase 65 U/L (45-117) 01/27/17 06:00 Total Protein 8.2 g/dl (6.4-8.2) 01/27/17 06:00 Albumin 4.4 g/dl (3.4-5.0) 01/27/17 06:00 Urine Color Jill 01/26/17 23:05 Urine Appearance Slcloudy 01/26/17 23:05 Urine pH 5.0 (5.0-8.0) 01/26/17 23:05 Ur Specific [place] >= 1.030 (1.005-1.025) H 01/26/17 23:05 Urine Protein 1+ (NEGATIVE) H 01/26/17 23:05 Urine Glucose (UA) Negative (NEGATIVE) 01/26/17 23:05 Urine Ketones Trace (NEGATIVE) H 01/26/17 23:05 Urine Blood Negative (NEGATIVE) 01/26/17 23:05 Urine Nitrite Negative (NEGATIVE) 01/26/17 23:05 Urine Bilirubin Negative (NEGATIVE) 01/26/17 23:05 Urine Urobilinogen Negative E.U./dl (0.2-1.0) 01/26/17 23:05 Ur Leukocyte Esterase Trace (NEGATIVE) H 01/26/17 23:05 Urine RBC 1 /hpf (0-3) 01/26/17 23:05 Urine WBC 3 /hpf (3-5) 01/26/17 23:05 Ur Epithelial Cells Rare /hpf (FEW) 01/26/17 23:05 Hyaline Casts 16 /lpf 01/26/17 23:05 Urine Mucus Few 01/26/17 23:05 Assessment: 01/27/17 11:51 WITHDRAWAL SX Plan: CONTINUE DETOX INCREASE PO FLUIDS
[2017-01-27] MEDS: GABAPENTIN 300 MG CAPSULE (FP) PO SCH ×2 (14:02→22:24)
--- NOTE | 2017-01-27 14:47 | EKG ---
Test Reason : Blood Pressure : / mmHG Vent. Rate : 052 BPM Atrial Rate : 052 BPM P-R Int : 144 ms QRS Dur : 092 ms QT Int : 466 ms P-R-T Axes : 059 073 059 degrees QTc Int : 433 ms SINUS BRADYCARDIA OTHERWISE NORMAL ECG WHEN COMPARED WITH ECG OF 17-OCT-2016 22:25, NO SIGNIFICANT CHANGE WAS FOUND Confirmed by NADIA CURTIS MD ([id number]) on 01/27/2017 2:47:17 PM Referred By: Confirmed By:NADIA CURTIS MD
[2017-01-27] MEDS: QUEtiapine FUMARATE 50 MG TABLET PO SCH (22:24)
[2017-01-27] MEDS: THIAMINE HCL 100 MG TABLET (FP) PO SCH (22:24)
[2017-01-27] MEDS: ATORVASTATIN CA 20 MG TABLET (FP) PO SCH (22:24)
[2017-01-27] MEDS ORDERED: INSULIN (NOVOLOG) ASPART 100 UNITS/ML 10ML VIAL ONE (22:25)
[2017-01-27 23:10] LABS: URINE APPEARANCE CLEAR; URINE BILIRUBIN NEGATIVE (NEGATIVE); URINE BLOOD NEGATIVE (NEGATIVE); URINE COLOR LTYELLOW; URINE GLUCOSE (UA) NEGATIVE (NEGATIVE); URINE KETONE NEGATIVE (NEGATIVE); URINE LEUK ESTERASE NEGATIVE (NEGATIVE); URINE NITRITE NEGATIVE (NEGATIVE); URINE PROTEIN NEGATIVE (NEGATIVE); URINE UROBILINOGEN NEGATIVE E.U./dl (0.2-1.0)
[2017-01-28] MEDS ORDERED: METHADONE HCL 10 MG TABLET ONE (04:05)
[2017-01-28] MEDS ORDERED: METHADONE HCL 40 MG DISPERSABLE TABLET ONE (04:05)
[2017-01-28] MEDS: METHADONE 160 MG, METHADONE 30 MG PO SCH (05:22)
[2017-01-28] MEDS: GABAPENTIN 300 MG CAPSULE (FP) PO SCH ×3 (05:22→22:22)
[2017-01-28] MEDS: NICOTINE POLACRILEX 4 MG GUM BC PRN ×4 (05:23→22:23)
[2017-01-28] MEDS: diazePAM 5 MG TABLET PO PRN ×2 (05:23→16:38)
[2017-01-28] MEDS ORDERED: METHADONE HCL 10 MG TABLET PO SCH (06:00)
[2017-01-28] MEDS: diazePAM 5 MG TABLET PO SCH ×2 (10:29→22:22)
[2017-01-28] MEDS: DOCUSATE SODIUM 100 MG CAPSULE (FP) PO SCH (10:29)
[2017-01-28] MEDS: HYDROCORTISONE 2.5% TOPICAL CREAM 30 GM TUBE TP SCH ×2 (10:29→22:23)
[2017-01-28] MEDS: PRENATAL VITAMINS W/ FOLIC ACID TABLET (FP) PO SCH (10:29)
[2017-01-28] MEDS: NICOTINE 21 MG/24 HOURS TOPICAL PATCH TD SCH (10:30)
--- NOTE | 2017-01-28 10:30 | PN ---
[facility] CIWA - CIWA Score Nausea/Vomitin-No Nausea/No Vomiting Muscle Tremors: 4-Moderate,w/Arms Extend Anxiety: 4-Mod. Anxious/Guarded Agitation: 4-Moderately Restless Paroxysmal Sweats: 1-Minimal Palms Moist Orientation: 0-Oriented Tacttile Disturbances: 3-Moderate Itch/Numb/Burn Auditory Disturbances: 0-None Visual Disturbances: 0-None Headache: 0-None Present CIWA-Ar Total Score: 16 S Progress Note (SOAP) Subjective: ANXIETY,RESTLESSNESS, SWEATS,INTERMITTENT SLEEP Objective: 01/28/17 10:29 Vital Signs Temperature 96.5 F L 01/28/17 09:36 Pulse Rate 78 01/28/17 09:36 Respiratory Rate 18 01/28/17 09:36 Blood Pressure 107/70 01/28/17 09:36 O2 Sat by Pulse Oximetry (%) Laboratory Last Values WBC 10.9 K/mm3 (4.0-10.0) H D 01/27/17 06:00 RBC 4.79 M/mm3 (4.00-5.60) 01/27/17 06:00 Hgb 13.4 GM/dL (11.7-16.9) 01/27/17 06:00 Hct 39.9 % (35.4-49) 01/27/17 06:00 MCV 83.2 fl (80-96) 01/27/17 06:00 MCHC 33.6 g/dl (32.0-35.9) 01/27/17 06:00 RDW 15.2 % (11.9-15.9) 01/27/17 06:00 Plt Count 188 K/MM3 (134-434) 01/27/17 06:00 MPV 10.3 fl (7.5-11.1) 01/27/17 06:00 Sodium 136 mmol/L (136-145) 01/27/17 06:00 Potassium 4.0 mmol/L (3.5-5.1) D 01/27/17 06:00 Chloride 96 mmol/L (98-107) L 01/27/17 06:00 Carbon Dioxide 27 mmol/L (21-32) D 01/27/17 06:00 Anion Gap 13 (8-16) 01/27/17 06:00 BUN 13 mg/dL (7-18) D 01/27/17 06:00 Creatinine 1.4 mg/dL (0.7-1.3) H D 01/27/17 06:00 Creat Clearance w eGFR 55.05 (>60) 01/27/17 06:00 Random Glucose 80 mg/dL (74-106) 01/27/17 06:00 Calcium 9.3 mg/dL (8.5-10.1) 01/27/17 06:00 Total Bilirubin 0.7 mg/dL (0.2-1.0) D 01/27/17 06:00 AST 17 U/L (15-37) 01/27/17 06:00 ALT 22 U/L (12-78) 01/27/17 06:00 Alkaline Phosphatase 65 U/L (45-117) 01/27/17 06:00 Total Protein 8.2 g/dl (6.4-8.2) 01/27/17 06:00 Albumin 4.4 g/dl (3.4-5.0) 01/27/17 06:00 Urine Color L[place] 01/27/17 15:00 Urine Appearance Clear 01/27/17 15:00 Urine pH 5.0 (5.0-8.0) 01/27/17 15:00 Ur Specific [place] >= 1.030 (1.005-1.025) H 01/26/17 23:05 Urine Protein Negative (NEGATIVE) 01/27/17 15:00 Urine Glucose (UA) Negative (NEGATIVE) 01/27/17 15:00 Urine Ketones Negative (NEGATIVE) 01/27/17 15:00 Urine Blood Negative (NEGATIVE) 01/27/17 15:00 Urine Nitrite Negative (NEGATIVE) 01/27/17 15:00 Urine Bilirubin Negative (NEGATIVE) 01/27/17 15:00 Urine Urobilinogen Negative E.U./dl (0.2-1.0) 01/27/17 15:00 Ur Leukocyte Esterase Negative (NEGATIVE) 01/27/17 15:00 Urine RBC 1 /hpf (0-3) 01/26/17 23:05 Urine WBC 3 /hpf (3-5) 01/26/17 23:05 Ur Epithelial Cells Rare /hpf (FEW) 01/26/17 23:05 Hyaline Casts 16 /lpf 01/26/17 23:05 Urine Mucus Few 06/19/17 23:05 Carbamazepine 2.6 ug/ml (4.0-12.0) L* 01/26/17 06:00 RPR Titer Nonreactive (NONREACTIVE) 01/27/17 06:00 Assessment: 01/28/17 10:29 WITHDRAWAL SX Plan: CONTINUE DETOX
[2017-01-28] MEDS: carBAMazepine 200 MG TABLET PO SCH ×2 (11:32→22:23)
[2017-01-28] MEDS: THIAMINE HCL 100 MG TABLET (FP) PO SCH (22:22)
[2017-01-28] MEDS: QUEtiapine FUMARATE 50 MG TABLET PO SCH (22:22)
[2017-01-28] MEDS: ATORVASTATIN CA 20 MG TABLET (FP) PO SCH (22:23)
[2017-01-29] MEDS ORDERED: METHADONE HCL 10 MG TABLET ONE (04:12)
[2017-01-29] MEDS ORDERED: METHADONE HCL 40 MG DISPERSABLE TABLET ONE (04:13)
[2017-01-29] MEDS: diazePAM 5 MG TABLET PO PRN (05:20)
[2017-01-29] MEDS: METHADONE 160 MG, METHADONE 30 MG PO SCH (05:20)
[2017-01-29] MEDS: GABAPENTIN 300 MG CAPSULE (FP) PO SCH ×3 (05:20→22:28)
[2017-01-29] MEDS: NICOTINE POLACRILEX 4 MG GUM BC PRN ×4 (05:21→22:28)
--- NOTE | 2017-01-29 09:59 | PN ---
S Progress Note (SOAP) Subjective: DECREASED IRRITABILITY AND RESTLESSNESS. DETOX PROCEEDING WELL. Objective: 01/29/17 09:59 Vital Signs Temperature 97.0 F L 01/29/17 06:54 Pulse Rate 86 01/29/17 06:54 Respiratory Rate 18 01/29/17 06:54 Blood Pressure 118/88 01/29/17 06:54 O2 Sat by Pulse Oximetry (%) Assessment: 01/29/17 09:59 DECREASED W/S Plan: CONTINUE DETOX
[2017-01-29] MEDS: HYDROCORTISONE 2.5% TOPICAL CREAM 30 GM TUBE TP SCH ×2 (10:31→22:28)
[2017-01-29] MEDS: diazePAM 5 MG TABLET PO SCH ×2 (10:31→22:28)
[2017-01-29] MEDS: carBAMazepine 200 MG TABLET PO SCH ×2 (10:31→22:28)
[2017-01-29] MEDS: NICOTINE 21 MG/24 HOURS TOPICAL PATCH TD SCH (10:31)
[2017-01-29] MEDS: DOCUSATE SODIUM 100 MG CAPSULE (FP) PO SCH (10:31)
[2017-01-29] MEDS: PRENATAL VITAMINS W/ FOLIC ACID TABLET (FP) PO SCH (10:31)
[2017-01-29] MEDS: THIAMINE HCL 100 MG TABLET (FP) PO SCH (22:28)
[2017-01-29] MEDS: ATORVASTATIN CA 20 MG TABLET (FP) PO SCH (22:28)
[2017-01-29] MEDS: QUEtiapine FUMARATE 50 MG TABLET PO SCH (22:28)
[2017-01-30] MEDS ORDERED: METHADONE HCL 10 MG TABLET ONE (04:03)
[2017-01-30] MEDS ORDERED: METHADONE HCL 40 MG DISPERSABLE TABLET ONE (04:04)
[2017-01-30] MEDS: GABAPENTIN 300 MG CAPSULE (FP) PO SCH (05:19)
[2017-01-30] MEDS: METHADONE 160 MG, METHADONE 30 MG PO SCH (05:19)
[2017-01-30 06:43] VITALS: BP 112/83; PULSE 95; TEMP 96.9
--- NOTE | 2017-01-30 08:50 | DS ---
[facility] Detox Discharge Summary Admission Date: 01/26/17 Discharge Date: 01/30/17 - History Present History: Alcohol Dependence, Cannabis Dependence, Cocaine Dependence, Sedative Dependence, MMTP Additional Comments: DETOX COMPLETED.ALERT O X 3. NAD. Pertinent Past History: HYPERCHOLESTEROLEMIA HX SEIZURE HX HEP C DEPRESSION - Physical Exam Results Vital Signs: Vital Signs Temperature 96.9 F L 01/30/17 06:42 Pulse Rate 95 H 01/30/17 06:42 Respiratory Rate 18 01/30/17 06:42 Blood Pressure 112/83 01/30/17 06:42 O2 Sat by Pulse Oximetry (%) Pertinent Admission Physical Exam Findings: WITHDRAWAL SX - Treatment Hospital Course: Detox Protocol Followed, Detoxed Safely, Responded well, Discharged Condition Good, Rehab Referral Accepted Patient has Accepted a Rehab Referral to: [facility] - Medication Discharge Medications: Ambulatory Orders Buspirone HCl [Buspar -] 10 mg PO TID #90 tablet 10/28/16 Quetiapine Fumarate [Seroquel -] 150 mg PO HS #30 tablet 10/28/16 Gabapentin [Neurontin -] 300 mg PO TID #90 tab 10/29/16 Carbamazepine [Tegretol -] 200 mg PO BID 01/26/17 Docusate Sodium [Colace -] 100 mg PO DAILY 01/26/17 Gabapentin [Neurontin -] 300 mg PO TID #90 cap 01/27/17 Quetiapine Fumarate [Seroquel] 150 mg PO HS #45 tablet 01/27/17 - Diagnosis (1) Neuropathy Status: Chronic (2) Nicotine dependence Status: Acute Qualifiers: Nicotine product type: cigarettes Substance use status: in withdrawal Qualified Code(s): F17.213 - Nicotine dependence, cigarettes, with withdrawal (3) Opioid dependence on agonist therapy Status: Acute (4) Sedative, hypnotic or anxiolytic dependence with withdrawal, uncomplicated Status: Acute (5) Cannabis dependence, uncomplicated Status: Acute (6) Cocaine dependence, uncomplicated Status: Acute (7) Hypercholesteremia Status: Chronic (8) Methadone maintenance therapy patient Status: Chronic (9) Bipolar II disorder Status: Suspected - AMA Did Patient Leave Against Medical Advice: No
[2017-01-30] MEDS ORDERED: diazePAM 5 MG TABLET PO SCH (10:00)
== END 2017-01-30 09:00 | disposition home or self-care (01) | DRG 897 ==
LOC: YASAS 11:11 → Y3N 18:17
PROVIDERS: ADMIT Internal Medicine; ATTEND Internal Medicine
PROC: HZ2ZZZZ Detoxification Services for Substance Abuse Treatment (ICD-10-PCS; principal; 2017-01-30)
DX: F11.20 Opioid dependence, uncomplicated (principal); F13.230 Sedative, hypnotic or anxiolytic dependence with withdrawal, uncomplicated; F14.20 Cocaine dependence, uncomplicated; F17.213 Nicotine dependence, cigarettes, with withdrawal; F31.81 Bipolar II disorder; F12.20 Cannabis dependence, uncomplicated; F19.24 Other psychoactive substance dependence with psychoactive substance-induced mood disorder; F43.10 Post-traumatic stress disorder, unspecified; G62.9 Polyneuropathy, unspecified; E78.00 Pure hypercholesterolemia, unspecified
CPT/HCPCS: 36415; 80053; 80156; 81003; 81015; 85027; 86593; 93005; 93010

== ENCOUNTER 2017-07-08 10:01 | Inpatient (IN) | payer OTHER ==
[2017-07-08 11:21] VITALS: BMI 27.6
--- NOTE | 2017-07-08 13:23 | HP ---
CIWA Score - CIWA Score Nausea/Vomitin-No Nausea/No Vomiting Muscle Tremors: 3 Anxiety: 4-Mod. Anxious/Guarded Agitation: 3 Paroxysmal Sweats: 1-Minimal Palms Moist Orientation: 0-Oriented Tacttile Disturbances: 3-Moderate Itch/Numb/Burn Auditory Disturbances: 0-None Visual Disturbances: 0-None Headache: 1-Very Mild CIWA-Ar Total Score: 15 Admission ROS S - HPI Chief Complaint: WITHDRAWAL SX Allergies/Adverse Reactions: Allergies Allergy/AdvReac Type Severity Reaction Status Date / Time No Known Allergies Allergy Verified 01/26/17 16:32 History of Present Illness: 46 Y/O MALE WITH A HX OF XANAX AND KLONOPIN DEPENDENCE SEEKING DETOX [place]. Exam Limitations: No Limitations - Ebola screening Have you traveled outside of the country in the last 21 days: No Have you had contact with anyone from an Ebola affected area: No Have you been sick,other than usual withdrawal symptoms: No Do you have a fever: No - Review of Systems Constitutional: Chills, Loss of Appetite, Night Sweats, Changes in sleep EENT: reports: Tearing, Nose Congestion, Dental Problems (NO TEETH;RECENT TEETH EXTRACTION 07/07/17.) Respiratory: reports: No Symptoms reported Cardiac: reports: Lightheadedness GI: reports: Constipated, Diarrhea, Nausea, Poor Appetite, Poor Fluid Intake, Vomiting, Abdominal cramping : reports: No Symptoms Reported Musculoskeletal: reports: Back Pain, Muscle Pain Integumentary: reports: Rash (RIGHT MONK RED RASH) Neuro: reports: Headache, Seizure (DUE TO WITHDRAWAL SX), Tremors, Dizziness Endocrine: reports: No Symptoms Reported Hematology: reports: Anemia Psychiatric: reports: Orientated x3, Anxious, Depressed Other Systems: Reviewed and Negative Patient History - Patient Medical History Hx Anemia: No Hx Asthma: No Hx Chronic Obstructive Pulmonary Disease (COPD): No Hx Cancer: No Hx Cardiac Disorders: No Hx Hypertension: No Hx Hypercholesterolemia: Yes (by history) Hx Pacemaker: No HX Cerebrovascular Accident: No Hx Seizures: Yes (xanax related last in 2015) Hx Dementia: No Hx Diabetes: No Hx Gastrointestinal Disorders: No Hx Liver Disease: No Hx Genitourinary Disorders: No Hx Sexually Transmitted Disorders: No (DENIES) Hx Renal Disease (ESRD): No Hx Thyroid Disease: No Hx Human Immunodeficiency Virus (HIV): No Hx Hepatitis C: Yes (treated) Hx Depression: Yes (ON MED) Hx Suicide Attempt: Yes (Tried to overdose in 2013;DENIES CURRENT S/I) Hx Bipolar Disorder: Yes Hx Schizophrenia: No - Patient Surgical History Past Surgical History: Yes Hx Neurologic Surgery: No Hx Cataract Extraction: No Hx Cardiac Surgery: No Hx Lung Surgery: No Hx Breast Surgery: No Hx Breast Biopsy: No Hx Abdominal Surgery: No Hx Appendectomy: No Hx Cholecystectomy: No Hx Genitourinary Surgery: No Hx Orthopedic Surgery: Yes (left forearm 2011) Other Surgical History: cellulitis from needle use, left arm R foot abscess sx Anesthesia Reaction: No - PPD History Previous Implant?: Yes Documented Results: Negative w/o proof Implanted On Prior [facility] Admission?: Yes Date: 06/27/16 Results: 0 mm PPD to be Administered?: Yes - Reproductive History Patient is a Female of Child Bearing Age (11 -55 yrs old): No (MALE) - Smoking Cessation Smoking history: Current every day smoker Have you smoked in the past 12 months: Yes Aproximately how many cigarettes per day: 10 Cigars Per Day: 0 Hx Chewing Tobacco Use: No Initiated information on smoking cessation: Yes 'Breaking Loose' booklet given: 07/08/17 - Substance & Tx. History Hx Alcohol Use: No (DENIES) Hx Substance Use: Yes (XANAX/KLONOPIN) Substance Use Type: Tranquilizers Hx Substance Use Treatment: Yes (LAST TX AT [facility]) - Substances Abused Cocaine Route: Smoking Frequency: 1-2 times per week Amount used: $20 Age of first use: 29 Date of Last Use: 07/07/17 xanax or klonopin Route: Oral Frequency: Daily Amount used: 6mg or 10mg Age of first use: 20 Date of Last Use: 07/08/17 Family Disease History - Family Disease History Family Disease History: Diabetes: Brother (asthma ), Respiratory: Brother, Other : Father (no contact) Admission Physical Exam S - Vital Signs Vital Signs: Vital Signs - 24 hr 07/08/17 11:11 Temperature 97 F L Pulse Rate 60 Respiratory 20 Rate Blood Pressure 89/57 - Physical General Appearance: Yes: Irritable, Anxious HEENTM: Yes: EOMI, Normocephalic, [place] Respiratory: Yes: Chest Non-Tender, Lungs Clear, Normal Breath Sounds, No Respiratory Distress Neck: Yes: No masses,lesions,Nodules, Supple, Trachea in good position Breast: Yes: Breast Exam Deferred Cardiology: Yes: Regular Rhythm, Regular Rate, S1, S2 Abdominal: Yes: Normal Bowel Sounds, Non Tender, Flat Genitourinary: Yes: Other (N/C) Back: Yes: Within Normal Limits Musculoskeletal: Yes: full range of Motion, Gait Steady Extremities: Yes: Normal Range of Motion, Non-Tender Neurological: Yes: repairer controller tester II-XII NML intact, Fully Oriented, Alert Integumentary: Yes: Dry, Warm, Other ( SX SCAR LEFT FOREARM) Lymphatic: Yes: Within Normal Limits - Diagnostic (1) Cocaine dependence, uncomplicated Current Visit: Yes Status: Acute (2) Nicotine dependence Current Visit: Yes Status: Acute Qualifiers: Nicotine product type: cigarettes Substance use status: in withdrawal Qualified Code(s): F17.213 - Nicotine dependence, cigarettes, with withdrawal (3) Sedative, hypnotic or anxiolytic dependence with withdrawal, uncomplicated Current Visit: Yes Status: Acute (4) Hypercholesteremia Current Visit: Yes Status: Chronic (5) Methadone maintenance therapy patient Current Visit: Yes Status: Chronic Comment: 190 mg verification pending (6) Neuropathy Current Visit: Yes Status: Chronic Comment: left fore arm s/p surgical repaired open fx Cleared for Admission [facility] - Detox or Rehab [facility] Level of Care: Medically Managed Detox Regimen/Protocol: Valium [facility] Breath Alcohol Content Breath Alcohol Content: 0 Urine Drug Screen - Results Drug Screen Negative: No Urine Drug Screen Results: LEYDI-Cocaine, BZO-Benzodiazepines, MTD-Methadone, TCA- Tricyclic Antidepress
[2017-07-08] MEDS ORDERED: MENTHOL/PHENOL 1 EACH UD MM PRN (13:28)
[2017-07-08] MEDS ORDERED: P-EPHED 60MG/TRIPROLIDI 2.5MG TABLET PO PRN (13:28)
[2017-07-08] MEDS ORDERED: MAGNESIUM HYDROX 2400MG/30ML ORAL SUSPENSION 30 ML CUP PO PRN (13:28)
[2017-07-08] MEDS ORDERED: ACETAMINOPHEN 325 MG TABLET (FP) PO PRN (13:28)
[2017-07-08] MEDS ORDERED: MAGNESIUM CITRATE 300 ML BOTTLE PO PRN (13:28)
[2017-07-08] MEDS ORDERED: IBUPROFEN 400 MG TABLET (FP) PO PRN (13:28)
[2017-07-08] MEDS ORDERED: hydrOXYzine PAMOATE 50 MG CAPSULE (FP) PO PRN (13:28)
[2017-07-08] MEDS ORDERED: guaiFENesin/D-METHORPHAN HB 10 ML UNIT-DOSE CUPS PO PRN (13:28)
[2017-07-08] MEDS ORDERED: MAG HYDROX/AL HYDROX/SIMETH 30 ML UNIT-DOSE CUP PO PRN (13:28)
[2017-07-08] MEDS ORDERED: LOPERAMIDE HCL 2 MG CAPSULE PO PRN (13:28)
[2017-07-08] MEDS ORDERED: diazePAM 5 MG TABLET PO ONE (13:45)
[2017-07-08] MEDS: diazePAM 5 MG TABLET PO SCH ×2 (14:41→22:11)
[2017-07-08] MEDS: NICOTINE 14 MG/24 HOURS TOPICAL PATCH TD SCH (14:45)
[2017-07-08] MEDS: NICOTINE POLACRILEX 2 MG GUM BC PRN ×2 (14:46→19:34)
[2017-07-08 14:54] LABS: HIV 1 & 2 AB NEGATIVE; HIV 1 AGp24 NEGATIVE
--- NOTE | 2017-07-08 16:48 | CONSULT ---
[facility] Psychiatric Consult - Data Date of interview: 07/08/17 Admission source: [facility] Identifying data: Readmission to [facility] for this 46 y/o male seeking detox treatment on for cocaine and benzodiazepine dependence.Patient is ,a father of one,domiciled,unemployed and supported on SSI benefits. Substance Abuse History: Confirmed by patient in this interview.See this [facility] report for details : Smoking history: Current every day smoker. Have you smoked in the past 12 months: Yes. Aproximately how many cigarettes per day: 10. Cigars Per Day: 0. Hx Chewing Tobacco Use: No. Initiated information on smoking cessation: Yes. 'Breaking Loose' booklet given: 07/08/17. - Substance & Tx. History. Hx Alcohol Use: No (DENIES). Hx Substance Use: Yes (XANAX/ KLONOPIN). Substance Use Type: Tranquilizers. Hx Substance Use Treatment: Yes (LAST TX AT [facility]). - Substances Abused. Cocaine. Route: Smoking. Frequency: 1-2 times per week. Amount used: $20. Age of first use: 29. Date of Last Use: 07/07/17. xanax or klonopin. Route: Oral. Frequency: Daily. Amount used: 6mg or 10mg. Age of first use: 20. Date of Last Use: 07/08/17 Medical History: Significant for a history of withdrawal seizures,hepatitis C and hypercholesterolemia. Psychiatric History: Patient admits to a remote history of psychiatric hospitalizations (10 years ago) in [place] and [facility].Diagnosed with Bipolar Disorder and PTSD.Patient is currently on methadone maintenance (190 mg/ day) at [facility] in [facility] and he gets OPD care at [facility]).Prescribed seroquel 150 mg/hs + gabapentin 300mg po tid.Non-adherent to medications for " a little over a month." Mr Kaye admits to a history of a suicide attempt via overdose with pills + heroin (15 years ago). Physical/Sexual Abuse/Trauma History: No reported history of abuse. Additional Comment: Urine Drug Screen Results: LEYDI-Cocaine, BZO-Benzodiazepines , MTD-Methadone, TCA-Tricyclic Antidepressant.Noted. Mental Status Exam - Mental Status Exam Alert and Oriented to: Time, Place, Person Cognitive Function: Good Patient Appearance: Well Groomed Mood: Nervous, Withdrawn, Hopeful Affect: Mood Congruent Patient Behavior: Fatigued, Appropriate, Cooperative Speech Pattern: Clear Voice Loudness: Normal Thought Process: Goal Oriented Thought Disorder: Not Present Hallucinations: Denies Suicidal Ideation: Denies Homicidal Ideation: Denies Insight/Judgement: Poor Sleep: Poorly, Difficulty falling asleep Appetite: Good Muscle strength/Tone: Normal Gait/Station: Normal Psychiatric Findings - Problem List ([place] 1, 2,3) (1) Sedative, hypnotic or anxiolytic dependence with withdrawal, uncomplicated Current Visit: Yes Status: Acute (2) Cocaine dependence, uncomplicated Current Visit: Yes Status: Acute (3) Opioid dependence on agonist therapy Current Visit: Yes Status: Acute (4) Nicotine dependence Current Visit: Yes Status: Acute Qualifiers: Nicotine product type: cigarettes Substance use status: in withdrawal Qualified Code(s): F17.213 - Nicotine dependence, cigarettes, with withdrawal (5) Substance induced mood disorder Current Visit: Yes Status: Acute (6) Post traumatic stress disorder (PTSD) Current Visit: Yes Status: Chronic Comment: By history. (7) Insomnia Current Visit: Yes Status: Acute - Initial Treatment Plan Initial Treatment Plan: Psychoeducation.Detoxification in progress.Sleep hygiene recommended.Seroquel 100 mg po hs.Side effects/benefits discussed with patient.He agrees with this careplan.Observation.
[2017-07-08] MEDS: AMOXICILLIN 500 MG CAPSULE (FP) PO SCH ×2 (17:03→22:11)
[2017-07-08] MEDS: diazePAM 5 MG TABLET PO PRN (19:34)
[2017-07-08] MEDS: THIAMINE HCL 100 MG TABLET (FP) PO SCH (22:11)
[2017-07-08] MEDS: CHLORHEXIDINE GLUCONATE MM SCH (22:11)
[2017-07-08] MEDS: ATORVASTATIN CA 10 MG TABLET (FP) PO SCH (22:11)
[2017-07-08] MEDS: DOCUSATE SODIUM 100 MG CAPSULE (FP) PO SCH (22:11)
[2017-07-08] MEDS: QUEtiapine FUMARATE 100 MG TABLET (FP) PO SCH (22:11)
[2017-07-08 22:35] LABS: ALBUMIN 4.5 g/dl (3.4-5.0); ANION GAP 5 (8-16); BILIRUBIN,TOTAL 0.4 mg/dL (0.2-1.0); CALCIUM 9.1 mg/dL (8.5-10.1); CO2 28 mmol/L (21-32); CREATININE 1.2 mg/dL (0.7-1.3); GLUCOSE,RANDOM 65 mg/dL (74-106); SGOT/AST 20 U/L (15-37); SGPT/ALT 22 U/L (12-78); TOT PROT 7.8 g/dl (6.4-8.2)
[2017-07-08 22:36] LABS: ALK PHOS 52 U/L (45-117); MCH 28.9 pg (25.7-33.7); MCHC 34.3 g/dl (32.0-35.9); MEAN CELL VOLUME 84.4 fl (80-96); MEAN PLT VOLUME 11.1 fl (7.5-11.1); PLATELET COUNT 161 K/MM3 (134-434); RDW 15.2 % (11.9-15.9); WHITE BLOOD COUNT 9.6 K/mm3 (4.0-10.0)
[2017-07-08 22:59] LABS: URINE APPEARANCE CLEAR; URINE BILIRUBIN NEGATIVE (NEGATIVE); URINE BLOOD NEGATIVE (NEGATIVE); URINE COLOR YELLOW; URINE GLUCOSE (UA) NEGATIVE (NEGATIVE); URINE KETONE NEGATIVE (NEGATIVE); URINE NITRITE NEGATIVE (NEGATIVE); URINE PROTEIN NEGATIVE (NEGATIVE); URINE UROBILINOGEN NEGATIVE mg/dL (0.2-1.0)
[2017-07-09] MEDS ORDERED: METHADONE HCL 40 MG DISPERSABLE TABLET ONE (04:02)
[2017-07-09] MEDS ORDERED: METHADONE HCL 10 MG TABLET ONE (04:02)
[2017-07-09] MEDS: METHADONE 160 MG, METHADONE 30 MG PO SCH (05:22)
[2017-07-09] MEDS: DOCUSATE SODIUM 100 MG CAPSULE (FP) PO SCH ×3 (05:23→22:12)
[2017-07-09] MEDS: AMOXICILLIN 500 MG CAPSULE (FP) PO SCH ×3 (05:23→22:12)
[2017-07-09] MEDS: diazePAM 5 MG TABLET PO SCH ×3 (05:23→22:12)
[2017-07-09] MEDS: NICOTINE POLACRILEX 2 MG GUM BC PRN ×4 (05:25→22:17)
[2017-07-09] MEDS ORDERED: METHADONE HCL 10 MG TABLET PO SCH (06:00)
[2017-07-09] MEDS: PRENATAL VITAMINS W/ FOLIC ACID TABLET (FP) PO SCH (10:08)
[2017-07-09] MEDS: NICOTINE 14 MG/24 HOURS TOPICAL PATCH TD SCH (10:10)
[2017-07-09] MEDS: CHLORHEXIDINE GLUCONATE MM SCH ×2 (10:10→22:13)
[2017-07-09] MEDS: IBUPROFEN 600 MG TABLET (FP) PO PRN ×2 (10:15→18:10)
[2017-07-09] MEDS: diazePAM 5 MG TABLET PO PRN ×2 (10:17→18:11)
[2017-07-09 10:18] LABS: ALBUMIN 3.7 g/dl (3.4-5.0); ALK PHOS 50 U/L (45-117); ANION GAP 3 (8-16); BILIRUBIN,TOTAL 0.4 mg/dL (0.2-1.0); CALCIUM 8.8 mg/dL (8.5-10.1); CO2 30 mmol/L (21-32); CREATININE 1.1 mg/dL (0.7-1.3); GLUCOSE,RANDOM 86 mg/dL (74-106); SGOT/AST 15 U/L (15-37); SGPT/ALT 21 U/L (12-78)
--- NOTE | 2017-07-09 11:44 | PN ---
[facility] CIWA - CIWA Score Nausea/Vomitin-No Nausea/No Vomiting Muscle Tremors: 4-Moderate,w/Arms Extend Anxiety: 3 Agitation: 2 Paroxysmal Sweats: 3 Orientation: 0-Oriented Tacttile Disturbances: 2-Mild Itch/Numbness/Burn Auditory Disturbances: 2-Mild Harshness/Frighten Visual Disturbances: 2-Mild Sensitivity Headache: 0-None Present CIWA-Ar Total Score: 18 S Progress Note (SOAP) Subjective: Body Aches, Tremors, Sweating, Fatigue. Objective: PT. A & O X 3, OBSERVED AMBULATING ON UNIT. NO ACUTE DISTRESS. 07/09/17 11:42 Vital Signs Temperature 96.0 F L 07/09/17 09:14 Pulse Rate 82 07/09/17 09:14 Respiratory Rate 18 07/09/17 09:14 Blood Pressure 104/72 07/09/17 09:14 O2 Sat by Pulse Oximetry (%) Laboratory Tests 07/08/17 07/08/17 07/08/17 11:20 13:30 13:30 WBC 9.6 RBC 4.54 Hgb 13.1 Hct 38.3 MCV 84.4 MCH 28.9 MCHC 34.3 RDW 15.2 Plt Count 161 MPV 11.1 Sodium 139 Potassium 5.2 H D Chloride 106 D Carbon Dioxide 28 Anion Gap 5 L BUN 20 H D Creatinine 1.2 Creat Clearance w eGFR > 60 Random Glucose 65 L Calcium 9.1 Total Bilirubin 0.4 D AST 20 ALT 22 Alkaline Phosphatase 52 Total Protein 7.8 Albumin 4.5 Urine Color Urine Appearance Urine pH Ur Specific [place] Urine Protein Urine Glucose (UA) Urine Ketones Urine Blood Urine Nitrite Urine Bilirubin Urine Urobilinogen RPR Titer HIV 1&2 Antibody Screen Negative HIV P24 Antigen Negative 07/08/17 07/08/17 07/09/17 13:30 15:50 07:00 WBC RBC Hgb Hct MCV MCH MCHC RDW Plt Count MPV Sodium 139 Potassium 4.8 Chloride 106 Carbon Dioxide 30 Anion Gap 3 L BUN 21 H Creatinine 1.1 Creat Clearance w eGFR > 60 Random Glucose 86 D Calcium 8.8 Total Bilirubin 0.4 AST 15 D ALT 21 Alkaline Phosphatase 50 Total Protein 7.0 Albumin 3.7 Urine Color Yellow Urine Appearance Clear Urine pH 5.0 Ur Specific [place] 1.016 Urine Protein Negative Urine Glucose (UA) Negative Urine Ketones Negative Urine Blood Negative Urine Nitrite Negative Urine Bilirubin Negative Urine Urobilinogen Negative RPR Titer Nonreactive HIV 1&2 Antibody Screen HIV P24 Antigen LABS NOTED. RESULTS OF REPEAT CMP NOTED. 07/09/17 11:45 Assessment: 07/09/17 11:42 WITHDRAWAL SYMPTOMS. Plan: CONTINUE DETOX. INCREASE DAILY PO FLUID INTAKE.
--- NOTE | 2017-07-09 13:09 | EKG ---
Test Reason : Blood Pressure : / mmHG Vent. Rate : 048 BPM Atrial Rate : 048 BPM P-R Int : 140 ms QRS Dur : 090 ms QT Int : 456 ms P-R-T Axes : 047 068 045 degrees QTc Int : 407 ms SINUS BRADYCARDIA OTHERWISE NORMAL ECG WHEN COMPARED WITH ECG OF 26-JAN-2017 18:18, NO SIGNIFICANT CHANGE WAS FOUND Confirmed by TOMMY BROWNE MD ([id number]) on 07/09/2017 1:08:59 PM Referred By: SANTA SHORT Confirmed By:TOMMY BROWNE MD
[2017-07-09 13:26] LABS: URINE LEUK ESTERASE Negative (NEGATIVE)
[2017-07-09] MEDS: THIAMINE HCL 100 MG TABLET (FP) PO SCH (22:12)
[2017-07-09] MEDS: QUEtiapine FUMARATE 100 MG TABLET (FP) PO SCH (22:13)
[2017-07-09] MEDS: ATORVASTATIN CA 10 MG TABLET (FP) PO SCH (22:13)
[2017-07-10] MEDS ORDERED: METHADONE HCL 10 MG TABLET ONE (03:46)
[2017-07-10] MEDS ORDERED: METHADONE HCL 40 MG DISPERSABLE TABLET ONE (03:47)
[2017-07-10] MEDS: diazePAM 5 MG TABLET PO PRN ×3 (05:36→18:01)
[2017-07-10] MEDS: AMOXICILLIN 500 MG CAPSULE (FP) PO SCH ×3 (05:36→22:15)
[2017-07-10] MEDS: METHADONE 160 MG, METHADONE 30 MG PO SCH (05:36)
[2017-07-10] MEDS: DOCUSATE SODIUM 100 MG CAPSULE (FP) PO SCH ×3 (05:36→22:16)
[2017-07-10] MEDS: NICOTINE POLACRILEX 2 MG GUM BC PRN ×5 (05:40→22:18)
[2017-07-10] MEDS: PRENATAL VITAMINS W/ FOLIC ACID TABLET (FP) PO SCH (10:17)
[2017-07-10] MEDS: NICOTINE 14 MG/24 HOURS TOPICAL PATCH TD SCH (10:17)
[2017-07-10] MEDS: diazePAM 5 MG TABLET PO SCH ×2 (10:17→22:15)
[2017-07-10] MEDS: CHLORHEXIDINE GLUCONATE MM SCH ×2 (10:18→22:16)
[2017-07-10] MEDS: IBUPROFEN 600 MG TABLET (FP) PO PRN (12:05)
--- NOTE | 2017-07-10 16:02 | PN ---
[facility] CIWA - CIWA Score Nausea/Vomitin-No Nausea/No Vomiting Muscle Tremors: None Anxiety: 4-Mod. Anxious/Guarded Agitation: 3 Paroxysmal Sweats: 3 Orientation: 0-Oriented Tacttile Disturbances: 2-Mild Itch/Numbness/Burn Auditory Disturbances: 2-Mild Harshness/Frighten Visual Disturbances: 2-Mild Sensitivity Headache: 0-None Present CIWA-Ar Total Score: 16 S Progress Note (SOAP) Subjective: Fatigue, Body Aches, Anxious, Sweating. Objective: PT. A & O X 3, OBSERVED AMBULATING ON UNIT. NO ACUTE DISTRESS. 07/10/17 16:00 Vital Signs Temperature 96.8 F L 07/10/17 13:51 Pulse Rate 86 07/10/17 13:51 Respiratory Rate 18 07/10/17 13:51 Blood Pressure 106/78 07/10/17 13:51 O2 Sat by Pulse Oximetry (%) Laboratory Tests 07/08/17 07/08/17 07/08/17 11:20 13:30 13:30 WBC 9.6 RBC 4.54 Hgb 13.1 Hct 38.3 MCV 84.4 MCH 28.9 MCHC 34.3 RDW 15.2 Plt Count 161 MPV 11.1 Sodium 139 Potassium 5.2 H D Chloride 106 D Carbon Dioxide 28 Anion Gap 5 L BUN 20 H D Creatinine 1.2 Creat Clearance w eGFR > 60 Random Glucose 65 L Calcium 9.1 Total Bilirubin 0.4 D AST 20 ALT 22 Alkaline Phosphatase 52 Total Protein 7.8 Albumin 4.5 Urine Color Urine Appearance Urine pH Ur Specific [place] Urine Protein Urine Glucose (UA) Urine Ketones Urine Blood Urine Nitrite Urine Bilirubin Urine Urobilinogen Ur Leukocyte Esterase RPR Titer HIV 1&2 Antibody Screen Negative HIV P24 Antigen Negative 07/08/17 07/08/17 07/09/17 13:30 15:50 07:00 WBC RBC Hgb Hct MCV MCH MCHC RDW Plt Count MPV Sodium 139 Potassium 4.8 Chloride 106 Carbon Dioxide 30 Anion Gap 3 L BUN 21 H Creatinine 1.1 Creat Clearance w eGFR > 60 Random Glucose 86 D Calcium 8.8 Total Bilirubin 0.4 AST 15 D ALT 21 Alkaline Phosphatase 50 Total Protein 7.0 Albumin 3.7 Urine Color Yellow Urine Appearance Clear Urine pH 5.0 Ur Specific [place] 1.016 Urine Protein Negative Urine Glucose (UA) Negative Urine Ketones Negative Urine Blood Negative Urine Nitrite Negative Urine Bilirubin Negative Urine Urobilinogen Negative Ur Leukocyte Esterase Negative RPR Titer Nonreactive HIV 1&2 Antibody Screen HIV P24 Antigen LABS NOTED. Assessment: 07/10/17 16:00 WITHDRAWAL SYMPTOMS. Plan: CONTINUE DETOX. PRN FLEXERIL FOR BODY ACHES / MUSCLE SPASMS. INCREASE DAILY PO FLUID INTAKE.
[2017-07-10] MEDS: ATORVASTATIN CA 10 MG TABLET (FP) PO SCH (22:15)
[2017-07-10] MEDS: THIAMINE HCL 100 MG TABLET (FP) PO SCH (22:15)
[2017-07-10] MEDS: QUEtiapine FUMARATE 100 MG TABLET (FP) PO SCH (22:15)
[2017-07-11] MEDS ORDERED: METHADONE HCL 10 MG TABLET ONE (04:08)
[2017-07-11] MEDS ORDERED: METHADONE HCL 40 MG DISPERSABLE TABLET ONE (04:09)
[2017-07-11] MEDS: DOCUSATE SODIUM 100 MG CAPSULE (FP) PO SCH ×3 (05:04→21:20)
[2017-07-11] MEDS: METHADONE 160 MG, METHADONE 30 MG PO SCH (05:05)
[2017-07-11] MEDS: AMOXICILLIN 500 MG CAPSULE (FP) PO SCH ×3 (07:44→21:20)
[2017-07-11] MEDS: diazePAM 5 MG TABLET PO PRN ×2 (07:44→13:06)
[2017-07-11] MEDS: NICOTINE POLACRILEX 2 MG GUM BC PRN ×2 (07:45→10:30)
[2017-07-11] MEDS: PRENATAL VITAMINS W/ FOLIC ACID TABLET (FP) PO SCH (09:33)
[2017-07-11] MEDS: diazePAM 5 MG TABLET PO SCH ×2 (09:33→21:20)
[2017-07-11] MEDS: CHLORHEXIDINE GLUCONATE MM SCH ×2 (09:34→21:20)
[2017-07-11] MEDS: NICOTINE 14 MG/24 HOURS TOPICAL PATCH TD SCH (09:34)
--- NOTE | 2017-07-11 14:29 | PN ---
[facility] Progress Note (SOAP) Subjective: Interrupted sleep, Sweating, H/A, Body Aches. Objective: PT. A & O X 3, OBSERVED AMBULATING ON UNIT. NO ACUTE DISTRESS. 07/11/17 14:28 Vital Signs Temperature 96.3 F L 07/11/17 13:22 Pulse Rate 76 07/11/17 13:22 Respiratory Rate 18 07/11/17 13:22 Blood Pressure 115/82 07/11/17 13:22 O2 Sat by Pulse Oximetry (%) Laboratory Tests 07/08/17 07/08/17 07/08/17 11:20 13:30 13:30 WBC 9.6 RBC 4.54 Hgb 13.1 Hct 38.3 MCV 84.4 MCH 28.9 MCHC 34.3 RDW 15.2 Plt Count 161 MPV 11.1 Sodium 139 Potassium 5.2 H D Chloride 106 D Carbon Dioxide 28 Anion Gap 5 L BUN 20 H D Creatinine 1.2 Creat Clearance w eGFR > 60 Random Glucose 65 L Calcium 9.1 Total Bilirubin 0.4 D AST 20 ALT 22 Alkaline Phosphatase 52 Total Protein 7.8 Albumin 4.5 Urine Color Urine Appearance Urine pH Ur Specific [place] Urine Protein Urine Glucose (UA) Urine Ketones Urine Blood Urine Nitrite Urine Bilirubin Urine Urobilinogen Ur Leukocyte Esterase RPR Titer HIV 1&2 Antibody Screen Negative HIV P24 Antigen Negative 07/08/17 07/08/17 07/09/17 13:30 15:50 07:00 WBC RBC Hgb Hct MCV MCH MCHC RDW Plt Count MPV Sodium 139 Potassium 4.8 Chloride 106 Carbon Dioxide 30 Anion Gap 3 L BUN 21 H Creatinine 1.1 Creat Clearance w eGFR > 60 Random Glucose 86 D Calcium 8.8 Total Bilirubin 0.4 AST 15 D ALT 21 Alkaline Phosphatase 50 Total Protein 7.0 Albumin 3.7 Urine Color Yellow Urine Appearance Clear Urine pH 5.0 Ur Specific [place] 1.016 Urine Protein Negative Urine Glucose (UA) Negative Urine Ketones Negative Urine Blood Negative Urine Nitrite Negative Urine Bilirubin Negative Urine Urobilinogen Negative Ur Leukocyte Esterase Negative RPR Titer Nonreactive HIV 1&2 Antibody Screen HIV P24 Antigen LABS NOTED. Assessment: 07/11/17 14:28 WITHDRAWAL SYMPTOMS. Plan: CONTINUE DETOX. INCREASE DAILY PO FLUID INTAKE.
[2017-07-11] MEDS: ATORVASTATIN CA 10 MG TABLET (FP) PO SCH (21:20)
[2017-07-11] MEDS: THIAMINE HCL 100 MG TABLET (FP) PO SCH (21:20)
[2017-07-11] MEDS: QUEtiapine FUMARATE 100 MG TABLET (FP) PO SCH (21:20)
[2017-07-12] MEDS ORDERED: METHADONE HCL 10 MG TABLET ONE (05:03)
[2017-07-12] MEDS ORDERED: METHADONE HCL 40 MG DISPERSABLE TABLET ONE (05:04)
[2017-07-12] MEDS: AMOXICILLIN 500 MG CAPSULE (FP) PO SCH (05:07)
[2017-07-12] MEDS: DOCUSATE SODIUM 100 MG CAPSULE (FP) PO SCH (05:07)
[2017-07-12] MEDS: NICOTINE POLACRILEX 2 MG GUM BC PRN (05:07)
[2017-07-12] MEDS: METHADONE 160 MG, METHADONE 30 MG PO SCH (05:08)
[2017-07-12 06:42] VITALS: BP 114/76; PULSE 66; TEMP 97
--- NOTE | 2017-07-12 09:03 | DS ---
[facility] Detox Discharge Summary Admission Date: 07/08/17 Discharge Date: 07/12/17 - History Present History: Cocaine Dependence, Sedative Dependence, MMTP Pertinent Past History: Hypercholesterolemia hep c treated - Physical Exam Results Vital Signs: Vital Signs Temperature 97.0 F L 07/12/17 06:41 Pulse Rate 66 07/12/17 06:41 Respiratory Rate 18 07/12/17 06:41 Blood Pressure 114/76 07/12/17 06:41 O2 Sat by Pulse Oximetry (%) Pertinent Admission Physical Exam Findings: Withdrawal sx, abscess L arm & R foot Laboratory Last Values WBC 9.6 K/mm3 (4.0-10.0) 07/08/17 13:30 RBC 4.54 M/mm3 (4.00-5.60) 07/08/17 13:30 Hgb 13.1 GM/dL (11.7-16.9) 07/08/17 13:30 Hct 38.3 % (35.4-49) 07/08/17 13:30 MCV 84.4 fl (80-96) 07/08/17 13:30 MCH 28.9 pg (25.7-33.7) 07/08/17 13:30 MCHC 34.3 g/dl (32.0-35.9) 07/08/17 13:30 RDW 15.2 % (11.9-15.9) 07/08/17 13:30 Plt Count 161 K/MM3 (134-434) 07/08/17 13:30 MPV 11.1 fl (7.5-11.1) 07/08/17 13:30 Sodium 139 mmol/L (136-145) 07/09/17 07:00 Potassium 4.8 mmol/L (3.5-5.1) 07/09/17 07:00 Chloride 106 mmol/L (98-107) 07/09/17 07:00 Carbon Dioxide 30 mmol/L (21-32) 07/09/17 07:00 Anion Gap 3 (8-16) L 07/09/17 07:00 BUN 21 mg/dL (7-18) H 07/09/17 07:00 Creatinine 1.1 mg/dL (0.7-1.3) 07/09/17 07:00 Creat Clearance w eGFR > 60 (>60) 07/09/17 07:00 Random Glucose 86 mg/dL (74-106) D 07/09/17 07:00 Calcium 8.8 mg/dL (8.5-10.1) 07/09/17 07:00 Total Bilirubin 0.4 mg/dL (0.2-1.0) 07/09/17 07:00 AST 15 U/L (15-37) D 07/09/17 07:00 ALT 21 U/L (12-78) 07/09/17 07:00 Alkaline Phosphatase 50 U/L (45-117) 07/09/17 07:00 Total Protein 7.0 g/dl (6.4-8.2) 07/09/17 07:00 Albumin 3.7 g/dl (3.4-5.0) 07/09/17 07:00 Urine Color Yellow 07/08/17 15:50 Urine Appearance Clear 07/08/17 15:50 Urine pH 5.0 (5.0-8.0) 07/08/17 15:50 Ur Specific [place] 1.016 (1.001-1.035) 07/08/17 15:50 Urine Protein Negative (NEGATIVE) 07/08/17 15:50 Urine Glucose (UA) Negative (NEGATIVE) 07/08/17 15:50 Urine Ketones Negative (NEGATIVE) 07/08/17 15:50 Urine Blood Negative (NEGATIVE) 07/08/17 15:50 Urine Nitrite Negative (NEGATIVE) 07/08/17 15:50 Urine Bilirubin Negative (NEGATIVE) 07/08/17 15:50 Urine Urobilinogen Negative mg/dL (0.2-1.0) 07/08/17 15:50 Ur Leukocyte Esterase Negative (NEGATIVE) 07/08/17 15:50 RPR Titer Nonreactive (NONREACTIVE) 07/08/17 13:30 HIV 1&2 Antibody Screen Negative 07/08/17 11:20 HIV P24 Antigen Negative 07/08/17 11:20 Labs noted - Treatment Hospital Course: Detox Protocol Followed, Detoxed Safely, Responded well, Discharged Condition Good, Rehab Referral Accepted Patient has Accepted a Rehab Referral to: [facility] - Medication Discharge Medications: Ambulatory Orders Buspirone HCl [Buspar -] 10 mg PO TID #90 tablet 10/28/16 Carbamazepine [Tegretol -] 200 mg PO BID 01/26/17 Gabapentin [Neurontin -] 300 mg PO TID #90 cap 01/27/17 Quetiapine Fumarate [Seroquel] 150 mg PO HS #45 tablet 01/27/17 Amoxicillin - [Amoxicillin 500mg Capsule -] 500 mg PO Q8H 07/08/17 Atorvastatin Calcium [Lipitor] 10 mg PO HS 07/08/17 Chlorhexidine Gluconate [Peridex -] 15 ml MM BID 07/08/17 Ibuprofen [Motrin -] 600 mg PO Q6H PRN 07/08/17 Quetiapine Fumarate [Seroquel] 100 mg PO HS #30 tablet 07/08/17 - Diagnosis (1) Cocaine dependence, uncomplicated Current Visit: Yes Status: Acute (2) Insomnia Current Visit: Yes Status: Acute (3) Nicotine dependence Current Visit: Yes Status: Acute Qualifiers: Nicotine product type: cigarettes Substance use status: in withdrawal Qualified Code(s): F17.213 - Nicotine dependence, cigarettes, with withdrawal (4) Sedative, hypnotic or anxiolytic dependence with withdrawal, uncomplicated Current Visit: Yes Status: Acute (5) Substance induced mood disorder Current Visit: Yes Status: Acute (6) Hypercholesteremia Current Visit: Yes Status: Chronic (7) Opioid dependence on agonist therapy Current Visit: Yes Status: Chronic (8) Post traumatic stress disorder (PTSD) Current Visit: Yes Status: Chronic (9) Abscess of left forearm Current Visit: Yes Status: Acute (10) Bipolar II disorder Current Visit: No Status: Suspected - AMA Did Patient Leave Against Medical Advice: No
[2017-07-12] MEDS ORDERED: diazePAM 5 MG TABLET PO SCH (10:00)
== END 2017-07-12 08:35 | disposition home or self-care (01) | DRG 882 ==
LOC: YASAS 10:01 → Y3N 13:16
PROVIDERS: ADMIT Internal Medicine; ATTEND Internal Medicine
PROC: HZ2ZZZZ Detoxification Services for Substance Abuse Treatment (ICD-10-PCS; principal; 2017-07-08)
DX: F43.10 Post-traumatic stress disorder, unspecified (principal); F11.23 Opioid dependence with withdrawal; F14.20 Cocaine dependence, uncomplicated; F13.230 Sedative, hypnotic or anxiolytic dependence with withdrawal, uncomplicated; F17.213 Nicotine dependence, cigarettes, with withdrawal; L02.414 Cutaneous abscess of left upper limb; F31.81 Bipolar II disorder; F12.20 Cannabis dependence, uncomplicated; F19.24 Other psychoactive substance dependence with psychoactive substance-induced mood disorder; E78.00 Pure hypercholesterolemia, unspecified
CPT/HCPCS: 36415; 80053; 81003; 85027; 86593; 87389; 93005; 93010

== ENCOUNTER 2018-01-12 11:40 | Inpatient (IN) | payer OTHER ==
[2018-01-12 12:01] VITALS: BMI 26.4
--- NOTE | 2018-01-12 14:14 | HP ---
CIWA Score - CIWA Score Nausea/Vomitin Muscle Tremors: 3 Anxiety: 3 Agitation: 3 Paroxysmal Sweats: 2 Orientation: 0-Oriented Tacttile Disturbances: 1-Very Mild Itch/Numbness Auditory Disturbances: 1-Very Mild Visual Disturbances: 0-None Headache: 2-Mild CIWA-Ar Total Score: 18 Admission ROS S - HPI Chief Complaint: i need help to stop using xanax,klonopin,cocaine and marijuana Allergies/Adverse Reactions: Allergies Allergy/AdvReac Type Severity Reaction Status Date / Time No Known Allergies Allergy Verified 01/12/18 12:23 History of Present Illness: this 47 years old male with xanax,klonopin,cocaine and marijuana dependence, seeking detox,withdrawal symptom,last detox [facility] 07/08/17 to 07/12/17 seizure last 03/26 syncope 12/25 hepatitis c treated in 2016 nicotine dependence longest period of sobriety 5 years bipolar ,anxiety,depression,ptsd Exam Limitations: No Limitations - Ebola screening Have you traveled outside of the country in the last 21 days: No Have you had contact with anyone from an Ebola affected area: No Have you been sick,other than usual withdrawal symptoms: No Do you have a fever: No - Review of Systems Constitutional: Chills, Loss of Appetite, Malaise, Night Sweats, Changes in sleep, Weakness, Unexplained wgt Loss EENT: reports: Tearing, Nose Congestion Respiratory: reports: No Symptoms reported Cardiac: reports: No Symptoms Reported GI: reports: Nausea, Poor Appetite, Abdominal cramping : reports: No Symptoms Reported Musculoskeletal: reports: Back Pain, Muscle Pain Integumentary: reports: Dryness Neuro: reports: Headache, Tremors Endocrine: reports: No Symptoms Reported Hematology: reports: No Symptoms Reported Psychiatric: reports: No Sypmtoms Reported, Judgement Intact, Mood/Affect Appropiate, Orientated x3 (insomnia), Anxious, Depressed Patient History - Patient Medical History Hx Anemia: No Hx Asthma: No Hx Chronic Obstructive Pulmonary Disease (COPD): No Hx Cancer: No Hx Cardiac Disorders: No Hx Congestive Heart Failure: No Hx Hypertension: No Hx Hypercholesterolemia: Yes (by history) Hx Pacemaker: No HX Cerebrovascular Accident: No Hx Seizures: No Hx Dementia: No Hx Diabetes: No Hx Gastrointestinal Disorders: No Hx Liver Disease: No Hx Genitourinary Disorders: No Hx Sexually Transmitted Disorders: Yes Hx Renal Disease (ESRD): No Hx Thyroid Disease: No Hx Human Immunodeficiency Virus (HIV): No (last 07/26 negative) Hx Hepatitis C: Yes (treated) Hx Depression: Yes Hx Suicide Attempt: Yes (Tried to overdose last year.) Hx Bipolar Disorder: Yes Hx Schizophrenia: No Other Medical History: no suicidal,no homicidal - Patient Surgical History Past Surgical History: Yes Hx Neurologic Surgery: No Hx Cataract Extraction: No Hx Cardiac Surgery: No Hx Lung Surgery: No Hx Breast Surgery: No Hx Breast Biopsy: No Hx Abdominal Surgery: No Hx Appendectomy: No Hx Cholecystectomy: No Hx Genitourinary Surgery: No Hx Section: No Hx Orthopedic Surgery: Yes (left forearm 2011) Other Surgical History: cellulitis from needle use, left arm R foot abscess sx Anesthesia Reaction: No - PPD History Previous Implant?: Yes Documented Results: Negative w/proof Implanted On Prior [facility] Admission?: Yes Date: 07/10/17 Results: 0 MM PPD to be Administered?: No - Reproductive History Patient : No - Smoking Cessation Smoking history: Current every day smoker Have you smoked in the past 12 months: Yes Aproximately how many cigarettes per day: 2 Cigars Per Day: 5 Hx Chewing Tobacco Use: No Initiated information on smoking cessation: Yes 'Breaking Loose' booklet given: 01/12/18 - Substance & Tx. History Hx Alcohol Use: No Hx Substance Use: Yes Substance Use Type: Cocaine, Marijuana, Tranquilizers Hx Substance Use Treatment: Yes ([facility] 07/08/17 to 07/12/17) - Substances Abused Cocaine Route: Injection Frequency: 3-6 times per week Amount used: 1 GRAM AND 1/2 Age of first use: 29 Date of Last Use: 01/11/18 Marijuana/Hashish Route: Smoking Frequency: 3-6 times per week Amount used: 1/2 BLUNT Age of first use: 20 Date of Last Use: 01/05/18 XANAX OR KLONOPIN Route: Oral Frequency: Daily Amount used: 6-10MG Age of first use: 18 Date of Last Use: 01/12/18 Family Disease History - Family Disease History Family Disease History: Diabetes: Brother (asthma ), Respiratory: Brother, Other : Father (no contact) Admission Physical Exam [facility] - Vital Signs Vital Signs: Vital Signs - 24 hr 01/12/18 12:00 Temperature 97.2 F L Pulse Rate 58 L Respiratory 20 Rate Blood Pressure 106/64 - Physical General Appearance: Yes: Moderate Distress, Tremorous, Irritable, Sweating, Anxious HEENTM: Yes: Normocephalic, [place], Pharynx Normal Respiratory: Yes: Lungs Clear, Normal Breath Sounds, No Respiratory Distress Neck: Yes: Within Normal Limits, Supple, Trachea in good position Breast: Yes: Within Normal Limits Cardiology: Yes: Within Normal Limits, Regular Rhythm, Regular Rate, S1, S2 Abdominal: Yes: Within Normal Limits, Normal Bowel Sounds, Soft Genitourinary: Yes: Within Normal Limits Back: Yes: Muscle Spasm Musculoskeletal: Yes: Back pain, Joint Stiffness, Muscle Pain Extremities: Yes: Tremors, Other 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, Fully Oriented, Alert, Motor Strength 5/5 Integumentary: Yes: Dry, Track [place] Lymphatic: Yes: Within Normal Limits - Diagnostic (1) Sedative, hypnotic or anxiolytic dependence with withdrawal, uncomplicated Current Visit: No Status: Acute (2) Cocaine dependence, uncomplicated Current Visit: No Status: Acute (3) Nicotine dependence Current Visit: No Status: Acute Qualifiers: Nicotine product type: cigarettes Substance use status: in withdrawal Qualified Code(s): F17.213 - Nicotine dependence, cigarettes, with withdrawal (4) History of hepatitis C Current Visit: No Status: Chronic (5) Neuropathy Current Visit: No Status: Chronic Comment: left fore arm s/p surgical repaired open fx (6) Opioid dependence on agonist therapy Current Visit: No Status: Chronic (7) Bipolar II disorder Current Visit: No Status: Suspected (8) Seizure Current Visit: No Status: Suspected Cleared for Admission [facility] - Detox or Rehab [facility] Level of Care: Medically Managed Detox Regimen/Protocol: Valium [facility] Breath Alcohol Content Breath Alcohol Content: 0 Urine Drug Screen - Results Drug Screen Negative: No Urine Drug Screen Results: THC-Marijuana, LEYDI-Cocaine, BZO-Benzodiazepines, MTD- Methadone
[2018-01-12] MEDS ORDERED: MAGNESIUM CITRATE 300 ML BOTTLE PO PRN (14:29)
[2018-01-12] MEDS ORDERED: hydrOXYzine PAMOATE 50 MG CAPSULE (FP) PO PRN (14:29)
[2018-01-12] MEDS ORDERED: guaiFENesin/D-METHORPHAN HB 10 ML UNIT-DOSE CUPS PO PRN (14:29)
[2018-01-12] MEDS ORDERED: MAG HYDROX/AL HYDROX/SIMETH 30 ML UNIT-DOSE CUP PO PRN (14:29)
[2018-01-12] MEDS ORDERED: LOPERAMIDE HCL 2 MG CAPSULE PO PRN (14:29)
[2018-01-12] MEDS ORDERED: P-EPHED 60MG/TRIPROLIDI 2.5MG TABLET PO PRN (14:29)
[2018-01-12] MEDS ORDERED: MAGNESIUM HYDROX 2400MG/30ML ORAL SUSPENSION 30 ML CUP PO PRN (14:29)
[2018-01-12] MEDS ORDERED: IBUPROFEN 400 MG TABLET (FP) PO PRN (14:29)
[2018-01-12] MEDS ORDERED: ACETAMINOPHEN 325 MG TABLET (FP) PO PRN (14:29)
[2018-01-12] MEDS ORDERED: MENTHOL/PHENOL 1 EACH UD MM PRN (14:29)
[2018-01-12] MEDS ORDERED: diazePAM 5 MG TABLET PO ONE (15:20)
[2018-01-12] MEDS: ATORVASTATIN CA 10 MG TABLET (FP) PO SCH (22:15)
[2018-01-12] MEDS: THIAMINE HCL 100 MG TABLET (FP) PO SCH (22:15)
[2018-01-12] MEDS: diazePAM 5 MG TABLET PO SCH (22:15)
[2018-01-12] MEDS: MELATONIN 5 MG TABLETS PO PRN (22:16)
[2018-01-13] MEDS: diazePAM 5 MG TABLET PO SCH ×3 (05:26→22:21)
[2018-01-13] MEDS ORDERED: METHADONE HCL 10 MG TABLET PO ONE (08:23)
[2018-01-13] MEDS ORDERED: METHADONE 160 MG, METHADONE 30 MG PO ONE (09:15)
[2018-01-13] MEDS ORDERED: METHADONE HCL 10 MG TABLET ONE (09:34)
[2018-01-13] MEDS ORDERED: METHADONE HCL 40 MG DISPERSABLE TABLET ONE (09:35)
[2018-01-13 10:20] LABS: URINE APPEARANCE CLEAR; URINE BILIRUBIN NEGATIVE (<2.0 mg/dL); URINE BLOOD 1+ (NEGATIVE); URINE COLOR LTYELLOW; URINE GLUCOSE (UA) NEGATIVE (NEGATIVE); URINE KETONE NEGATIVE (NEGATIVE); URINE LEUK ESTERASE TRACE (NEGATIVE); URINE NITRITE NEGATIVE (NEGATIVE); URINE PROTEIN NEGATIVE (NEGATIVE); URINE UROBILINOGEN NEGATIVE mg/dL (0.2-1.0)
[2018-01-13 10:25] LABS: URINE HYALINE CAST 1 /lpf
[2018-01-13 10:27] LABS: HEMATOCRIT 35.4 % (35.4-49); HEMOGLOBIN 12.5 GM/dL (11.7-16.9); MCH 29.5 pg (25.7-33.7); MCHC 35.3 g/dl (32.0-35.9); MEAN CELL VOLUME 83.6 fl (80-96); MEAN PLT VOLUME 11.2 fl (7.5-11.1); PLATELET COUNT 144 K/MM3 (134-434); RBC 4.23 M/mm3 (4.00-5.60); RDW 14.7 % (11.9-15.9); WHITE BLOOD COUNT 8.6 K/mm3 (4.0-10.0)
[2018-01-13] MEDS: diazePAM 5 MG TABLET PO PRN ×2 (10:27→17:25)
[2018-01-13] MEDS: PRENATAL VITAMINS W/ FOLIC ACID TABLET (FP) PO SCH (10:27)
[2018-01-13 10:48] LABS: CHLORIDE 103 mmol/L (98-107); POTASSIUM 4.6 mmol/L (3.5-5.1); SODIUM 138 mmol/L (136-145)
[2018-01-13] MEDS ORDERED: HYDROCORTISONE 1% TOPICAL OINT 30 GM TUBE TP SCH (11:00)
[2018-01-13 11:09] LABS: ALBUMIN 3.9 g/dl (3.4-5.0); ALK PHOS 55 U/L (45-117); ANION GAP 7 (8-16); BILIRUBIN,TOTAL 0.3 mg/dL (0.2-1.0); BLOOD UREA NITROGEN 15 mg/dL (7-18); CO2 28 mmol/L (21-32); CREATININE 1.2 mg/dL (0.7-1.3); GLUCOSE,RANDOM 81 mg/dL (74-106); SGOT/AST 15 U/L (15-37); SGPT/ALT 17 U/L (12-78); TOT PROT 7.4 g/dl (6.4-8.2)
--- NOTE | 2018-01-13 11:54 | EKG ---
Test Reason : Blood Pressure : / mmHG Vent. Rate : 068 BPM Atrial Rate : 068 BPM P-R Int : 132 ms QRS Dur : 090 ms QT Int : 430 ms P-R-T Axes : 035 078 063 degrees QTc Int : 457 ms NORMAL SINUS RHYTHM NORMAL ECG WHEN COMPARED WITH ECG OF 08-JUL-2017 15:51, QT HAS LENGTHENED Confirmed by GRIS ADAEM MD ([id number]) on 01/13/2018 11:53:49 AM Referred By: Confirmed By:GRIS ADAME MD
[2018-01-13] MEDS: NICOTINE 21 MG/24 HOURS TOPICAL PATCH TD SCH (12:00)
[2018-01-13] MEDS: HYDROCORTISONE 1% TOPICAL OINT 30 GM TUBE TP SCH ×2 (12:01→22:21)
[2018-01-13] MEDS: BACITRACIN 0.9 GM PACKET TP SCH ×2 (12:05→22:21)
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
[2018-01-13] MEDS: GABAPENTIN 300 MG CAPSULE (FP) PO SCH ×2 (13:50→22:22)
--- NOTE | 2018-01-13 14:50 | PN ---
[facility] CIWA - CIWA Score Nausea/Vomitin-No Nausea/No Vomiting Muscle Tremors: 4-Moderate,w/Arms Extend Anxiety: 4-Mod. Anxious/Guarded Agitation: 4-Moderately Restless Paroxysmal Sweats: 1-Minimal Palms Moist Orientation: 0-Oriented Tacttile Disturbances: 0-None Auditory Disturbances: 0-None Visual Disturbances: 0-None Headache: 0-None Present CIWA-Ar Total Score: 13 S Progress Note (SOAP) Subjective: ANXIETY,SWEATS,IRRITABILITY,INTERMITTENT SLEEP. C/O SLIGHT PAINFUL BUMP ON LEFT ELBOW DUE TO IVD TRACK Objective: 01/13/18 14:50 Vital Signs 01/13/18 01/13/18 09:25 13:58 Temperature 97.8 F 98.2 F Pulse Rate 64 59 L Respiratory 18 18 Rate Blood Pressure 109/80 106/71 Laboratory Tests 01/13/18 01/13/18 01/13/18 06:00 06:00 06:00 WBC 8.6 RBC 4.23 Hgb 12.5 Hct 35.4 MCV 83.6 MCH 29.5 MCHC 35.3 RDW 14.7 Plt Count 144 MPV 11.2 H Sodium 138 Potassium 4.6 Chloride 103 Carbon Dioxide 28 Anion Gap 7 L BUN 15 D Creatinine 1.2 Creat Clearance w eGFR > 60 Random Glucose 81 Calcium 9.0 Total Bilirubin 0.3 D AST 15 ALT 17 Alkaline Phosphatase 55 Total Protein 7.4 Albumin 3.9 Urine Color Urine Appearance Urine pH Ur Specific [place] Urine Protein Urine Glucose (UA) Urine Ketones Urine Blood Urine Nitrite Urine Bilirubin Urine Urobilinogen Ur Leukocyte Esterase Urine WBC (Auto) Urine RBC (Auto) Hyaline Casts RPR Titer Nonreactive 01/13/18 08:00 WBC RBC Hgb Hct MCV MCH MCHC RDW Plt Count MPV Sodium Potassium Chloride Carbon Dioxide Anion Gap BUN Creatinine Creat Clearance w eGFR Random Glucose Calcium Total Bilirubin AST ALT Alkaline Phosphatase Total Protein Albumin Urine Color Ltyellow Urine Appearance Clear Urine pH 6.0 Ur Specific [place] 1.014 Urine Protein Negative Urine Glucose (UA) Negative Urine Ketones Negative Urine Blood 1+ H Urine Nitrite Negative Urine Bilirubin Negative Urine Urobilinogen Negative Ur Leukocyte Esterase Trace Urine WBC (Auto) <1 Urine RBC (Auto) 2 Hyaline Casts 1 RPR Titer LEFT ELBOW WITH NO REDNESS OR ACUTE SWELLING. APPEARS TO BE SCAR TISSUE DUE TO PAST IVD USE ON AREA. VERI MINIMAL PAIN ON PALPATION TO CURRENT USE OF AREA. 01/14/18 15:25 Assessment: 01/13/18 14:50 WITHDRAWAL SX Plan: CONTINUE DETOX WARM COMPRESS BACITRACIN OINTMENT DIRECTED..
[2018-01-13] MEDS: ATORVASTATIN CA 10 MG TABLET (FP) PO SCH (22:21)
[2018-01-13] MEDS: THIAMINE HCL 100 MG TABLET (FP) PO SCH (22:21)
[2018-01-13] MEDS: MELATONIN 5 MG TABLETS PO PRN (22:22)
[2018-01-13] MEDS: QUEtiapine FUMARATE 100 MG TABLET (FP) PO SCH (22:22)
[2018-01-14] MEDS ORDERED: METHADONE HCL 10 MG TABLET ONE (04:34)
[2018-01-14] MEDS ORDERED: METHADONE HCL 40 MG DISPERSABLE TABLET ONE (04:35)
[2018-01-14] MEDS: METHADONE 160 MG, METHADONE 30 MG PO SCH (05:47)
[2018-01-14] MEDS: GABAPENTIN 300 MG CAPSULE (FP) PO SCH ×3 (05:48→22:28)
[2018-01-14] MEDS: diazePAM 5 MG TABLET PO PRN ×2 (05:48→14:32)
[2018-01-14] MEDS ORDERED: METHADONE HCL 10 MG TABLET PO SCH (06:00)
[2018-01-14] MEDS: NICOTINE 21 MG/24 HOURS TOPICAL PATCH TD SCH (10:47)
[2018-01-14] MEDS: BACITRACIN 0.9 GM PACKET TP SCH ×2 (10:47→22:27)
[2018-01-14] MEDS: HYDROCORTISONE 1% TOPICAL OINT 30 GM TUBE TP SCH ×2 (10:47→22:44)
[2018-01-14] MEDS: diazePAM 5 MG TABLET PO SCH ×2 (10:47→22:27)
[2018-01-14] MEDS: PRENATAL VITAMINS W/ FOLIC ACID TABLET (FP) PO SCH (10:48)
[2018-01-14] MEDS: NICOTINE POLACRILEX 4 MG GUM BUC PRN ×2 (10:48→22:29)
--- NOTE | 2018-01-14 15:28 | PN ---
[facility] CIWA - CIWA Score Nausea/Vomitin-No Nausea/No Vomiting Muscle Tremors: 4-Moderate,w/Arms Extend Anxiety: 4-Mod. Anxious/Guarded Agitation: 4-Moderately Restless Paroxysmal Sweats: 1-Minimal Palms Moist Orientation: 0-Oriented Tacttile Disturbances: 3-Moderate Itch/Numb/Burn Auditory Disturbances: 0-None Visual Disturbances: 0-None Headache: 0-None Present CIWA-Ar Total Score: 16 [facility] Progress Note (SOAP) Subjective: ANXIETY,SWEATS,CHILLS. ALERT O X 3. Objective: 01/14/18 15:27 Vital Signs 01/14/18 01/14/18 09:59 14:47 Temperature 96.8 F L 98.8 F Pulse Rate 72 64 Respiratory 18 18 Rate Blood Pressure 101/71 116/77 Laboratory Tests 01/13/18 01/13/18 01/13/18 06:00 06:00 06:00 WBC 8.6 RBC 4.23 Hgb 12.5 Hct 35.4 MCV 83.6 MCH 29.5 MCHC 35.3 RDW 14.7 Plt Count 144 MPV 11.2 H Sodium 138 Potassium 4.6 Chloride 103 Carbon Dioxide 28 Anion Gap 7 L BUN 15 D Creatinine 1.2 Creat Clearance w eGFR > 60 Random Glucose 81 Calcium 9.0 Total Bilirubin 0.3 D AST 15 ALT 17 Alkaline Phosphatase 55 Total Protein 7.4 Albumin 3.9 Urine Color Urine Appearance Urine pH Ur Specific [place] Urine Protein Urine Glucose (UA) Urine Ketones Urine Blood Urine Nitrite Urine Bilirubin Urine Urobilinogen Ur Leukocyte Esterase Urine WBC (Auto) Urine RBC (Auto) Hyaline Casts RPR Titer Nonreactive 01/13/18 08:00 WBC RBC Hgb Hct MCV MCH MCHC RDW Plt Count MPV Sodium Potassium Chloride Carbon Dioxide Anion Gap BUN Creatinine Creat Clearance w eGFR Random Glucose Calcium Total Bilirubin AST ALT Alkaline Phosphatase Total Protein Albumin Urine Color Ltyellow Urine Appearance Clear Urine pH 6.0 Ur Specific [place] 1.014 Urine Protein Negative Urine Glucose (UA) Negative Urine Ketones Negative Urine Blood 1+ H Urine Nitrite Negative Urine Bilirubin Negative Urine Urobilinogen Negative Ur Leukocyte Esterase Trace Urine WBC (Auto) <1 Urine RBC (Auto) 2 Hyaline Casts 1 RPR Titer Assessment: 01/14/18 15:27 WITHDRAWAL SX Plan: CONTINUE DETOX INCREASE PO FLUIDS
[2018-01-14] MEDS: ATORVASTATIN CA 10 MG TABLET (FP) PO SCH (22:28)
[2018-01-14] MEDS: QUEtiapine FUMARATE 100 MG TABLET (FP) PO SCH (22:28)
[2018-01-14] MEDS: THIAMINE HCL 100 MG TABLET (FP) PO SCH (22:29)
[2018-01-15] MEDS ORDERED: METHADONE HCL 10 MG TABLET ONE (04:23)
[2018-01-15] MEDS ORDERED: METHADONE HCL 40 MG DISPERSABLE TABLET ONE (04:24)
[2018-01-15] MEDS: METHADONE 160 MG, METHADONE 30 MG PO SCH (05:20)
[2018-01-15] MEDS: GABAPENTIN 300 MG CAPSULE (FP) PO SCH ×3 (05:20→22:37)
[2018-01-15] MEDS: HYDROCORTISONE 1% TOPICAL OINT 30 GM TUBE TP SCH ×2 (10:35→22:37)
[2018-01-15] MEDS: diazePAM 5 MG TABLET PO SCH ×2 (10:35→22:37)
[2018-01-15] MEDS: PRENATAL VITAMINS W/ FOLIC ACID TABLET (FP) PO SCH (10:35)
[2018-01-15] MEDS: NICOTINE 21 MG/24 HOURS TOPICAL PATCH TD SCH (10:35)
[2018-01-15] MEDS: NICOTINE POLACRILEX 4 MG GUM BUC PRN ×3 (10:36→17:36)
[2018-01-15] MEDS: BACITRACIN 0.9 GM PACKET TP SCH ×2 (10:37→22:36)
--- NOTE | 2018-01-15 12:23 | PN ---
[facility] Progress Note (SOAP) Subjective: ALERT O X 3. ANXIETY,MUSCLE TWITCHING. Objective: 01/15/18 12:23 Vital Signs 01/15/18 01/15/18 06:37 10:09 Temperature 98.2 F 97.5 F L Pulse Rate 72 60 Respiratory 18 18 Rate Blood Pressure 102/76 89/61 Laboratory Tests 01/13/18 01/13/18 01/13/18 06:00 06:00 06:00 WBC 8.6 RBC 4.23 Hgb 12.5 Hct 35.4 MCV 83.6 MCH 29.5 MCHC 35.3 RDW 14.7 Plt Count 144 MPV 11.2 H Sodium 138 Potassium 4.6 Chloride 103 Carbon Dioxide 28 Anion Gap 7 L BUN 15 D Creatinine 1.2 Creat Clearance w eGFR > 60 Random Glucose 81 Calcium 9.0 Total Bilirubin 0.3 D AST 15 ALT 17 Alkaline Phosphatase 55 Total Protein 7.4 Albumin 3.9 Urine Color Urine Appearance Urine pH Ur Specific [place] Urine Protein Urine Glucose (UA) Urine Ketones Urine Blood Urine Nitrite Urine Bilirubin Urine Urobilinogen Ur Leukocyte Esterase Urine WBC (Auto) Urine RBC (Auto) Hyaline Casts RPR Titer Nonreactive 01/13/18 08:00 WBC RBC Hgb Hct MCV MCH MCHC RDW Plt Count MPV Sodium Potassium Chloride Carbon Dioxide Anion Gap BUN Creatinine Creat Clearance w eGFR Random Glucose Calcium Total Bilirubin AST ALT Alkaline Phosphatase Total Protein Albumin Urine Color Ltyellow Urine Appearance Clear Urine pH 6.0 Ur Specific [place] 1.014 Urine Protein Negative Urine Glucose (UA) Negative Urine Ketones Negative Urine Blood 1+ H Urine Nitrite Negative Urine Bilirubin Negative Urine Urobilinogen Negative Ur Leukocyte Esterase Trace Urine WBC (Auto) <1 Urine RBC (Auto) 2 Hyaline Casts 1 RPR Titer Assessment: 01/15/18 12:23 WITHDRAWAL SX Plan: CONTINUE DETOX
[2018-01-15] MEDS: ATORVASTATIN CA 10 MG TABLET (FP) PO SCH (22:37)
[2018-01-15] MEDS: QUEtiapine FUMARATE 100 MG TABLET (FP) PO SCH (22:37)
[2018-01-15] MEDS: THIAMINE HCL 100 MG TABLET (FP) PO SCH (22:37)
[2018-01-16] MEDS ORDERED: METHADONE HCL 10 MG TABLET ONE (04:08)
[2018-01-16] MEDS ORDERED: METHADONE HCL 40 MG DISPERSABLE TABLET ONE (04:09)
[2018-01-16] MEDS: METHADONE 160 MG, METHADONE 30 MG PO SCH (06:00)
[2018-01-16] MEDS: GABAPENTIN 300 MG CAPSULE (FP) PO SCH (06:01)
[2018-01-16 06:29] VITALS: BP 121/83; PULSE 66; TEMP 97.6
[2018-01-16] MEDS ORDERED: diazePAM 5 MG TABLET PO SCH (10:00)
--- NOTE | 2018-01-16 18:26 | PN ---
[facility] Progress Note (SOAP) Subjective: Patient denies current Detox symptoms and reports that he feels well overall. Objective: PATIENT A & O X 3, OBSERVED AMBULATING ON UNIT. NO ACUTE DISTRESS. 01/16/18 18:25 Vital Signs Temperature 97.6 F 01/16/18 06:29 Pulse Rate 66 01/16/18 06:29 Respiratory Rate 16 01/16/18 06:29 Blood Pressure 121/83 01/16/18 06:29 O2 Sat by Pulse Oximetry (%) Laboratory Tests 01/13/18 01/13/18 01/13/18 06:00 06:00 06:00 WBC 8.6 RBC 4.23 Hgb 12.5 Hct 35.4 MCV 83.6 MCH 29.5 MCHC 35.3 RDW 14.7 Plt Count 144 MPV 11.2 H Sodium 138 Potassium 4.6 Chloride 103 Carbon Dioxide 28 Anion Gap 7 L BUN 15 D Creatinine 1.2 Creat Clearance w eGFR > 60 Random Glucose 81 Calcium 9.0 Total Bilirubin 0.3 D AST 15 ALT 17 Alkaline Phosphatase 55 Total Protein 7.4 Albumin 3.9 Urine Color Urine Appearance Urine pH Ur Specific [place] Urine Protein Urine Glucose (UA) Urine Ketones Urine Blood Urine Nitrite Urine Bilirubin Urine Urobilinogen Ur Leukocyte Esterase Urine WBC (Auto) Urine RBC (Auto) Hyaline Casts RPR Titer Nonreactive 01/13/18 08:00 WBC RBC Hgb Hct MCV MCH MCHC RDW Plt Count MPV Sodium Potassium Chloride Carbon Dioxide Anion Gap BUN Creatinine Creat Clearance w eGFR Random Glucose Calcium Total Bilirubin AST ALT Alkaline Phosphatase Total Protein Albumin Urine Color Ltyellow Urine Appearance Clear Urine pH 6.0 Ur Specific [place] 1.014 Urine Protein Negative Urine Glucose (UA) Negative Urine Ketones Negative Urine Blood 1+ H Urine Nitrite Negative Urine Bilirubin Negative Urine Urobilinogen Negative Ur Leukocyte Esterase Trace Urine WBC (Auto) <1 Urine RBC (Auto) 2 Hyaline Casts 1 RPR Titer LABS NOTED. Assessment: 01/16/18 18:26 COMPLETION OF DETOX REGIMEN. Plan: PATIENT SCHEDULED FOR DISCHARGE FROM DETOX UNIT TODAY.
--- NOTE | 2018-01-16 18:30 | DS ---
[facility] Detox Discharge Summary Admission Date: 01/12/18 Discharge Date: 01/16/18 - History Present History: Cannabis Dependence, Cocaine Dependence, Opioid Dependence, Sedative Dependence, MMTP Additional Comments: PATIENT GOING TOP [facility] ([place], [place] FOR AFTERCARE. PATIENT WAS DISCHARGED FROM DETOX UNIT IN STABLE MEDICAL CONDITION. Pertinent Past History: Hep C, Hypercholesterolemia, History of Bipolar II Disorder, Neuropathy, PTSD, Neuropathy, History of Seizure, Depression. - Physical Exam Results Vital Signs: Vital Signs Temperature 97.6 F 01/16/18 06:29 Pulse Rate 66 01/16/18 06:29 Respiratory Rate 16 01/16/18 06:29 Blood Pressure 121/83 01/16/18 06:29 O2 Sat by Pulse Oximetry (%) Pertinent Admission Physical Exam Findings: WITHDRAWAL SYMPTOMS. Laboratory Tests 01/13/18 01/13/18 01/13/18 06:00 06:00 06:00 WBC 8.6 RBC 4.23 Hgb 12.5 Hct 35.4 MCV 83.6 MCH 29.5 MCHC 35.3 RDW 14.7 Plt Count 144 MPV 11.2 H Sodium 138 Potassium 4.6 Chloride 103 Carbon Dioxide 28 Anion Gap 7 L BUN 15 D Creatinine 1.2 Creat Clearance w eGFR > 60 Random Glucose 81 Calcium 9.0 Total Bilirubin 0.3 D AST 15 ALT 17 Alkaline Phosphatase 55 Total Protein 7.4 Albumin 3.9 Urine Color Urine Appearance Urine pH Ur Specific [place] Urine Protein Urine Glucose (UA) Urine Ketones Urine Blood Urine Nitrite Urine Bilirubin Urine Urobilinogen Ur Leukocyte Esterase Urine WBC (Auto) Urine RBC (Auto) Hyaline Casts RPR Titer Nonreactive 01/13/18 08:00 WBC RBC Hgb Hct MCV MCH MCHC RDW Plt Count MPV Sodium Potassium Chloride Carbon Dioxide Anion Gap BUN Creatinine Creat Clearance w eGFR Random Glucose Calcium Total Bilirubin AST ALT Alkaline Phosphatase Total Protein Albumin Urine Color Ltyellow Urine Appearance Clear Urine pH 6.0 Ur Specific [place] 1.014 Urine Protein Negative Urine Glucose (UA) Negative Urine Ketones Negative Urine Blood 1+ H Urine Nitrite Negative Urine Bilirubin Negative Urine Urobilinogen Negative Ur Leukocyte Esterase Trace Urine WBC (Auto) <1 Urine RBC (Auto) 2 Hyaline Casts 1 RPR Titer LABS NOTED. - Treatment Hospital Course: Detox Protocol Followed, Detoxed Safely, Responded well, Discharged Condition Good, Rehab Referral Accepted Patient has Accepted a Rehab Referral to: [facility] ([place], [place] - Medication Discharge Medications: Ambulatory Orders Gabapentin [Neurontin -] 300 mg PO TID #90 cap 01/27/17 Atorvastatin Calcium [Lipitor] 10 mg PO HS 07/08/17 Quetiapine Fumarate [Seroquel] 100 mg PO HS #30 tablet 07/08/17 Quetiapine Fumarate [Seroquel] 100 mg PO HS #30 tablet 01/15/18 - Diagnosis (1) Cocaine dependence, uncomplicated Status: Acute (2) Drug-induced mood disorder Status: Acute (3) Insomnia Status: Acute Qualifiers: Insomnia type: unspecified Qualified Code(s): G47.00 - Insomnia, unspecified (4) Nicotine dependence Status: Acute Qualifiers: Nicotine product type: cigarettes Substance use status: in withdrawal Qualified Code(s): F17.213 - Nicotine dependence, cigarettes, with withdrawal (5) Opioid dependence on agonist therapy Status: Chronic (6) Sedative, hypnotic or anxiolytic dependence with withdrawal, uncomplicated Status: Acute (7) Substance induced mood disorder Status: Acute (8) Bipolar II disorder Status: Chronic (9) History of hepatitis C Status: Chronic (10) Hypercholesteremia Status: Chronic (11) Methadone maintenance therapy patient Status: Chronic (12) Neuropathy Status: Chronic (13) Post traumatic stress disorder (PTSD) Status: Chronic (14) Seizure Status: Suspected (15) Cannabis dependence, uncomplicated Status: Acute - AMA Did Patient Leave Against Medical Advice: No
== END 2018-01-16 08:57 | disposition home or self-care (01) | DRG 897 ==
LOC: YASAS 11:40 → Y3N 15:12
PROVIDERS: ADMIT Surgery; ATTEND Surgery
PROC: HZ2ZZZZ Detoxification Services for Substance Abuse Treatment (ICD-10-PCS; principal; 2018-01-12)
DX: F13.230 Sedative, hypnotic or anxiolytic dependence with withdrawal, uncomplicated (principal); F11.20 Opioid dependence, uncomplicated; F14.20 Cocaine dependence, uncomplicated; F31.81 Bipolar II disorder; F12.20 Cannabis dependence, uncomplicated; F17.213 Nicotine dependence, cigarettes, with withdrawal; F19.24 Other psychoactive substance dependence with psychoactive substance-induced mood disorder; F43.10 Post-traumatic stress disorder, unspecified; G47.00 Insomnia, unspecified; B18.2 Chronic viral hepatitis C; E78.00 Pure hypercholesterolemia, unspecified; G62.9 Polyneuropathy, unspecified; Z86.69 Personal history of other diseases of the nervous system and sense organs; Z91.5 Personal history of self-harm
CPT/HCPCS: 36415; 80053; 81003; 81015; 85027; 86593; 93005; 93010